=== PATIENT | female | born 1960 ===

== ENCOUNTER 2022-05-23 12:58 | Emergency (ER) | payer OTHER, MEDICAID, SELFPAY ==
--- NOTE | ~2022-05-23 | CT_ITS ---
EXAMINATION: CT ABDOMEN AND PELVIS WITHOUT CONTRAST CLINICAL INFORMATION: Left lower quadrant pain. COMPARISON: None TECHNIQUE: Multidetector volumetric imaging was performed from the superior aspect of the liver through the pubic symphysis. Sagittal and coronal reformatted images were obtained on the technologist's workstation. This CT examination was performed using dose optimization techniques as appropriate, variously including the following: *Automated exposure control *Adjustment of mA and/or kV according to patient size (this includes techniques or standardized protocols for targeted exams where dose is matched to indication/reason for exam; i.e. extremities or head) *Use of iterative reconstruction technique DLP: 787 mGy-cm FINDINGS: LUNG BASES: The visualized lung bases are unremarkable. LIVER, GALLBLADDER, AND BILIARY TREE: The liver is normal in size, shape, and attenuation. No focal hepatic lesion or biliary ductal dilatation is present. There is a punctate 3 mm calcification in the posterior segment right hepatic lobe The gallbladder is unremarkable with no evidence of radiopaque gallstones, gallbladder wall thickening, or obvious pericholecystic inflammatory changes. PANCREAS: Unremarkable. SPLEEN: Unremarkable. ADRENAL GLANDS: Unremarkable. KIDNEYS AND URETERS: The kidneys are normal in size, shape, and attenuation. No hydronephrosis, hydroureter, or calculi seen. No perinephric stranding. BLADDER: Unremarkable. GASTROINTESTINAL TRACT: There is scattered stool and gas seen in the colon without any distention. The small bowel loops are normal caliber. Appendix is normal caliber. No inflammatory process, free air or free fluid seen. ABDOMINAL WALL: No significant hernia is appreciated. LYMPH NODES: Normal. VASCULAR: Unremarkable. PELVIC VISCERA: The uterus is not visualized likely atrophied or removed. There is no free fluid. No abnormal pelvic lymph nodes or adnexal mass. OSSEOUS STRUCTURES: There are degenerative disc changes with vacuum disc phenomena and moderate-sized posterior osteophyte L5-S1 and mild degenerative changes L4-L5 disc level. No aggressive lytic or sclerotic process seen. CT/CT abdomen pelvis wo IV con IMPRESSION: No acute intra-abdominal process seen. Fleischner guidelines were followed.
[2022-05-23 13:07] VITALS: BP 149/71; PULSE 97; RESP 18; TEMP 36.7; O2SAT 98; BMI 36.6
[2022-05-23 13:24] LABS: MANUAL DIFF FLAG NO
[2022-05-23 13:25] LABS: Basophils Percent Auto 0.3 % (0-2); Eosinophils Absolute Auto 0.1 X10*3/uL (0.0-0.4); Eosinophils Percent Auto 1.8 % (0-4); Hematocrit 43.6 % (37.0-47.0); Imm Gran Abs Auto 0.02 X10*3/uL (0.00-0.03); Imm Gran Pct Auto 0.3 % (0.0-0.4); Lymphocytes Absolute Auto 2.7 X10*3/uL (1.2-4.9); Lymphocytes Percent Auto 37.8 % (20-40); Mean Corpuscular HGB Conc 32.1 g/dl (31.0-35.0); Mean Corpuscular Hemoglobin 27.9 pg (27.0-33.0); Mean Corpuscular Volume 86.9 fL (80.0-98.0); Mean Platelet Volume 10.8 fL (9.4-12.3); Monocytes Absolute Auto 0.4 X10*3/uL (0.1-1.2); Monocytes Percent Auto 5.1 % (2-11); Neutrophils Percent Auto 54.7 % (45-73); Platelet Count 202 X10*3/uL (160-400); Red Blood Count 5.02 X10*6/uL (4.20-5.50); Red Cell Distribution Width 13.5 % (11.0-16.0); White Blood Count 7.2 X10*3/uL (4.8-10.8)
[2022-05-23 13:26] LABS: Appearance Urine Clear; Color Urine Yellow; Glucose Urine UA Negative (Negative); Leukocyte Esterase Urine Negative (Negative); Nitrite Urine Negative (Negative); PH 5.5 (5.0-9.0); Specific Gravity - Urine 1.025 (1.005-1.025); Urine Blood Negative (Negative); Urine Ketones Negative (Negative); Urine Protein Negative (Neg-Trace)
[2022-05-23 13:57] LABS: Alanine Aminotransferase 20 U/L (0-31); Albumin Level 4.3 g/dL (3.5-5.0); Alkaline Phosphatase 152 U/L (39-117); Anion Gap 20 (12-20); Aspartate Amino Transferase 16 U/L (5-31); Bilirubin Direct < 0.2 mg/dL (0.0-0.5); Bilirubin Total < 0.2 mg/dL (0.0-1.0); Blood Urea Nitrogen 23 mg/dL (9-16); Calcium 9.2 mg/dL (8.4-10.2); Carbon Dioxide 20 mmol/L (22-29); Chloride 102 mmol/L (96-108); Creatinine Clr Calc Pharmacy 82.4; Estimated Glomerular Filt Rate > 60; Glucose Random 165 mg/dL (60-115); Lipase 76 U/L (8-78); Potassium 4.2 mmol/L (3.3-5.1); Sodium 138 mmol/L (135-145); Total Protein 7.5 g/dL (6.5-8.0)
[2022-05-23 16:00] VITALS: BP 140/54; PULSE 98; RESP 18; TEMP 37.2; O2SAT 99
--- NOTE | 2022-05-23 16:28 | ED_ITS ---
HPI - Abdominal Pain General Chief Complaint: Abdominal Pain Stated Complaint: Pain in L side Time Seen by Provider: 05/23/22 16:28 Source: patient Mode of arrival: ambulatory Limitations: no limitations History of Present Illness HPI narrative: 62 yo female with hx of DM, fibromyalgia and asthma reports 4 days of LLQ pain no other symptoms such as fever, n/v/d. No prior stones or diverticulitis. Has not responded to gabapentin. MD elicited complaint: abdominal pain Pertinent past history: none Onset (ago): day(s) (4) Pain Consistency: constant Location: LLQ Severity: moderate Quality: cramping Radiation: none Migration to: no migration Exacerbating factors: movement Relieving factors: nothing Associated symptoms: denies other symptoms Treatments prior to arrival: other (gabapentin) Related Data Allergies Allergy/AdvReac Type Severity Reaction Status Date / Time hydrocortisone Allergy Anaphylaxis Verified 05/23/22 13:06 [From Solu-Cortef] tramadol AdvReac Palpitation Verified 05/23/22 13:06 s Review of Systems Review of Systems Constitutional : No Weight loss, No Fever, No Chills ENT/Mouth : No sore throat, No Rhinorrhea Eyes: No Swelling, No Redness Cardiovascular : No Chest Pain, No SOB, NoEdema Respiratory : No Cough, No Sputum, No Wheezing Gastrointestinal : no Nausea, no Vomiting, no Diarrhea, positive abdominal Pain, No Hematochezia, No Melena Genitourinary : No Dysuria, No Urinary Frequency, No Hematuria, No Urgency Musculoskeletal : No joint pain, No Myalgias, No Joint Swelling Skin : No Skin Lesions, No rash Neuro : No Weakness, No Numbness, No Dizziness, No Headache Psych : No Anxiety/Panic, No Depression Heme/Lymph: No Bruising, No Lymphadenopathy Endocrine : No Polyuria, No Polydipsia All other systems reviewed and are negative. [facility] Past Medical History Attestation statement: The following information was validated with the patient. Medical History Diabetes Fibromyalgia Social History Social History (Updated 05/23/22 @ 17:05 by Arianna Ny DO) Patient Tobacco Use Status: Never used Tobacco Advance Directives: No Advance Directives Information Provided: No Patient : No Physical Exam ED Vital Signs: Vital Signs - 24 hr 05/23/22 13:07 05/23/22 16:00 05/23/22 18:30 Temperature 98.0 F 98.9 F 97.9 F Pulse Rate 97 98 78 Respiratory Rate 18 18 18 Blood Pressure 149/71 H 140/54 H 141/60 H Pulse Oximetry 98 99 98 Oxygen Delivery Method Room Air Room Air Room Air BMI result Body Mass Index 36.6 Appearance: Alert. Oriented X3. No acute distress. Eyes: Pupils equal, round and reactive to light. ENT: Pharynx normal. Neck: Normal inspection. Neck supple. CVS: Normal heart rate and rhythm. Pulses normal. Respiratory: No respiratory distress. Breath sounds normal. Abdomen: Soft and mild LLQ pain no rebound or guarding Skin: Skin warm and dry. Normal skin color. Normal skin turgor. Extremities: No lower extremity edema. No calf ttp Neuro: Oriented X 3. No motor deficit. No sensory deficit. Course Course Course Narrative: no acute findings. stable for DC call to radiology to review images no ureteral stone seen MDM - Abdominal Pain MDM Narrative Medical decision making narrative: 62 yo female with hx of DM, fibromyalgia and asthma reports 4 days of LLQ pain at this time labs, UA and CT scan for diverticulitis/renal colic ordered. PO tylenol ordered. Lab Data Result diagrams: 05/23/22 13:18 05/23/22 13:18 Labs: Lab Results 05/23/22 05/23/22 05/23/22 Range/Units 13:18 13:18 13:18 WBC 7.2 (4.8-10.8) X10*3/uL RBC 5.02 (4.20-5.50) X10*6/uL Hgb 14.0 (12.0-16.0) g/dl Hct 43.6 (37.0-47.0) % MCV 86.9 (80.0-98.0) fL MCH 27.9 (27.0-33.0) pg MCHC 32.1 (31.0-35.0) g/dl RDW 13.5 (11.0-16.0) % Plt Count 202 (160-400) X10*3/uL MPV 10.8 (9.4-12.3) fL Immature Gran % (Auto) 0.3 (0.0-0.4) % Neut % (Auto) 54.7 (45-73) % Lymph % (Auto) 37.8 (20-40) % [place] % (Auto) 5.1 (2-11) % Eos % (Auto) 1.8 (0-4) % Baso % (Auto) 0.3 (0-2) % Lymph # (Auto) 2.7 (1.2-4.9) X10*3/uL [place] # (Auto) 0.4 (0.1-1.2) X10*3/uL Eos # (Auto) 0.1 (0.0-0.4) X10*3/uL Baso # (Auto) 0.0 (0.0-0.2) X10*3/uL Abs Immat Gran (auto) 0.02 (0.00-0.03) X10*3/uL Absolute Neuts (auto) 4.0 (2.0-8.3) x10*3/uL Absolute Nucleated RBC 0.000 (0.0-0.012) X10*3/uL Nucleated RBC % (auto) 0.0 (0.0-0.2) /100WBC Sodium 138 (135-145) mmol/L Potassium 4.2 (3.3-5.1) mmol/L Chloride 102 (96-108) mmol/L Carbon Dioxide 20 L (22-29) mmol/L Anion Gap 20 (12-20) BUN 23 H (9-16) mg/dL Creatinine 0.76 (0.5-1.4) mg/dL Estim Creat Clear Calc 82.4 Estimated GFR > 60 Random Glucose 165 H (60-115) mg/dL Calcium 9.2 (8.4-10.2) mg/dL Total Bilirubin < 0.2 (0.0-1.0) mg/dL Direct Bilirubin < 0.2 (0.0-0.5) mg/dL AST 16 (5-31) U/L ALT 20 (0-31) U/L Alkaline Phosphatase 152 H (39-117) U/L Total Protein 7.5 (6.5-8.0) g/dL Albumin 4.3 (3.5-5.0) g/dL Lipase 76 (8-78) U/L Urine Color Yellow Urine Appearance Clear Urine pH 5.5 (5.0-9.0) Ur Specific [place] 1.025 (1.005-1.025) Urine Protein Negative (Neg-Trace) mg/dL Urine Glucose (UA) Negative (Negative) mg/dL Urine Ketones Negative (Negative) mg/dL Urine Blood Negative (Negative) Urine Nitrite Negative (Negative) Ur Leukocyte Esterase Negative (Negative) Discharge Plan Discharge Clinical Impression: Abdominal pain Qualifiers: Abdominal location: left lower quadrant Qualified Code(s): R10.32 - Left lower quadrant pain Patient Disposition: Home, Self-Care Instructions: Abdominal Pain (ED) Additional Instructions: return to ED for any worsening symptoms or concerns follow up with your doctor if not better in 3 days take tylenol as needed for pain FINDINGS: LUNG BASES: The visualized lung bases are unremarkable.? LIVER, GALLBLADDER, AND BILIARY TREE: The liver is normal in size, shape, and attenuation. No focal hepatic lesion or biliary ductal dilatation is present. There is a punctate 3 mm calcification in the posterior segment right hepatic lobe The gallbladder is unremarkable with no evidence of radiopaque gallstones, gallbladder wall thickening, or obvious pericholecystic inflammatory changes.? PANCREAS: Unremarkable.? SPLEEN: Unremarkable.? ADRENAL GLANDS: Unremarkable.? KIDNEYS AND URETERS: The kidneys are normal in size, shape, and attenuation. No hydronephrosis, hydroureter, or calculi seen. No perinephric stranding. ? BLADDER: Unremarkable.? GASTROINTESTINAL TRACT: There is scattered stool and gas seen in the colon without any distention. The small bowel loops are normal caliber. Appendix is normal caliber. No inflammatory process, free air or free fluid seen. ABDOMINAL WALL: No significant hernia is appreciated.? LYMPH NODES: Normal. VASCULAR: Unremarkable. PELVIC VISCERA: The uterus is not visualized likely atrophied or removed. There is no free fluid. No abnormal pelvic lymph nodes or adnexal mass. OSSEOUS STRUCTURES: There are degenerative disc changes with vacuum disc phenomena and moderate-sized posterior osteophyte L5-S1 and mild degenerative changes L4-L5 disc level. No aggressive lytic or sclerotic process seen.? CT/CT abdomen pelvis wo IV con IMPRESSION: No acute intra-abdominal process seen.? ?
[2022-05-23] MEDS: Acetaminophen 325 MG TABLET 975 MG PO (18:28)
[2022-05-23 18:30] VITALS: BP 141/60; PULSE 78; RESP 18; TEMP 36.6; O2SAT 98
--- NOTE | 2022-05-23 18:35 | PC.NURSE ---
patient a/o x4 . pearrla . herat rate regular at 85 beats per minute . lungs clear in all lobes . abdomen soft . rebound tenderness noted in left lower quadrent , patient reports 7 out 10 level pain that radiates to flank /back . patient medicated with Tylenol as ordered .positive for bowel sounds in all quadrants . patient aware of plan of care .
== END 2022-05-23 20:24 | disposition home or self-care (01) ==
PROVIDERS: Emergency Provider Emergency Medicine
DX: R10.32 Left lower quadrant pain (principal); E11.9 Type 2 diabetes mellitus without complications
CPT/HCPCS: 36415; 74176; 80053; 81003; 82248; 83690; 85025; 99284

== ENCOUNTER 2022-07-12 00:45 | Emergency (ER) | payer OTHER, MEDICAID, SELFPAY ==
--- NOTE | 2022-07-12 | ECG_ITS ---
Test Reason : SOB Blood Pressure : / mmHG Vent. Rate : 086 BPM Atrial Rate : 086 BPM P-R Int : 130 ms QRS Dur : 074 ms QT Int : 388 ms P-R-T Axes : 048 083 066 degrees QTc Int : 464 ms Normal sinus rhythm Normal ECG No previous ECGs available Referred By: Generic ED Physician Electronically Signed By:Brandyn Dietz
[2022-07-12 01:09] VITALS: BP 148/73; PULSE 102; RESP 20; TEMP 36.2; O2SAT 96; BMI 33.6
[2022-07-12 01:37] LABS: COVID-19 Test Negative (Negative); IDNOW Serial# 16C4AD1C; IDNOW Serial# BCCEAD1C; Influenza A Negative (Negative); Influenza B2 Negative (Negative)
--- NOTE | 2022-07-12 01:49 | ED.ASTHMA ---
HPI - Asthma General Chief Complaint: Asthma Stated Complaint: Asthma/Flu like symptoms Time Seen by Provider: 07/12/22 01:48 Source: patient Mode of arrival: ambulatory Limitations: no limitations History of Present Illness HPI Narrative: Patient history of asthma with frequent attacks moved from [place] does not have the medicine for nebulizer been wheezing for last 1 week with cough and mucoid phlegm no running nose no fever or chills either that does not work Related Data Previous Rx's Medication Instructions Recorded albuterol sulfate 2.5 mg/3 mL 2.5 mg (3 mL) inhalation Q4-6H PRN 07/12/22 (0.083 %) solution for nebulization shortness of breath or wheezing #90 mL albuterol sulfate 90 mcg/actuation 2 puff inhalation Q4-6H PRN 07/12/22 aerosol inhaler (ProAir HFA) shortness of breath or wheezing #8.5 grams prednisone 20 mg tablet 40 mg PO DAILY #10 tabs 07/12/22 Allergies Allergy/AdvReac Type Severity Reaction Status Date / Time hydrocortisone Allergy Anaphylaxis Verified 05/23/22 13:06 [From Solu-Cortef] tramadol AdvReac Palpitation Verified 05/23/22 13:06 s Review of Systems Review of Systems: Yes all other systems are reviewed and are negative [facility] Past Medical History Medical History Diabetes Fibromyalgia Social History Social History Patient Tobacco Use Status: Never used Tobacco Advance Directives: No Advance Directives Information Provided: Yes Physical Exam Vital Signs: Vital Signs: Last Vital Signs Temp 98.0 F 07/12/22 03:40 Pulse 89 07/12/22 03:40 Resp 16 07/12/22 03:40 BP 148/66 H 07/12/22 03:40 Pulse Ox 98 07/12/22 03:40 O2 Del Method 07/12/22 03:40 BMI result Body Mass Index 33.6 Appearance: Alert. Oriented X3. No acute distress. ENT: Pharynx normal. Oral Mucosa moist Neck: Normal inspection. Neck supple. CVS: Normal heart rate and rhythm. Pulses normal. Respiratory: No respiratory distress. Equal air entry bilateral, bilateral prolonged expiration with wheezing no rales Abdomen: Soft and nontender. Bowel sounds are present, Skin: Skin warm and dry. Normal skin color. Normal skin turgor. Extremities: No lower extremity edema. No calf tenderness Neuro: Oriented X 3. No motor deficit. Medications Administered Discontinued Medications Generic Name Dose Route Start Last Admin Trade Name Freq PRN Reason Stop Dose Admin Albuterol Sulfate 2.5 mg/ 0 mg 07/12/22 02:00 07/12/22 02:21 Albuterol/Ipratropium 3 ml INHALE 07/12/22 02:01 1 each ONCE ONE Administration Dexamethasone 10 mg 07/12/22 02:00 07/12/22 02:09 Dexamethasone 2 Mg Tablet PO 07/12/22 02:01 10 mg ONCE ONE Administration Guaifenesin/Codeine Phosphate 10 ml 07/12/22 02:00 07/12/22 02:09 Guaifen/Codeine Sf 200/20/10ml 10 Ml Liquid PO 07/12/22 02:01 10 ml ONCE ONE Administration MDM - Asthma MDM Narrative Medical decision making narrative: Patient's asthma feeling much better after DuoNeb treatment and prednisone discharge patient home Lab Data Attestation: I reviewed the patient's lab results. Labs: Lab Results 07/12/22 07/12/22 Range/Units 01:15 01:15 COVID-19 (TAISHA) Negative (Negative) COVID-19 Clin Com See Note Influenza Type A (SHANTELL) Negative (Negative) Influenza Type B (SHANTELL) Negative (Negative) Influenza A & B Note See Note Discharge Plan Discharge Clinical Impression: Asthma with acute exacerbation Patient Disposition: Home, Self-Care Instructions: Asthma (ED) Additional Instructions: Use inhaler/nebulizer treatment every 4-6 hours as needed prednisone as prescribed Follow with PCP if not better Prescriptions: New prednisone 20 mg tablet 40 mg PO DAILY Qty: 10 0RF albuterol sulfate [ProAir HFA] 90 mcg/actuation HFA aerosol inhaler 2 puff inhalation Q4-6H PRN (Reason: shortness of breath or wheezing) Qty: 8.5 0RF albuterol sulfate 2.5 mg /3 mL (0.083 %) solution for nebulization 2.5 mg inhalation Q4-6H PRN (Reason: shortness of breath or wheezing) Qty: 90 0RF Interventions: ED Discharge Assessment Last Done: 07/12/22 03:41 Discharge Date/Time: 07/12/22 03:42
--- NOTE | 2022-07-12 02:02 | PC.NURSE ---
EKG completed at 0115 in triage documented at 0202
[2022-07-12] MEDS: dexAMETHasone 2 MG TABLET 10 MG PO (02:09)
[2022-07-12] MEDS: guaiFEN/Codeine SF 200/20/10ML 10 ML LIQUID PO (02:09)
[2022-07-12 02:13] VITALS: BP 139/60; PULSE 99; RESP 16; O2SAT 99
[2022-07-12] MEDS: Albuterol Sulfate 2.5 MG, Albuterol/Iprat 2.5/0.5MG 3 ML 3 ML INHALE (02:21)
[2022-07-12 02:24] VITALS: PULSE 84; RESP 16; O2SAT 99
[2022-07-12 03:40] VITALS: BP 148/66; PULSE 89; RESP 16; TEMP 36.7; O2SAT 98
== END 2022-07-12 03:42 | disposition home or self-care (01) ==
PROVIDERS: Emergency Provider Internal Medicine
DX: J45.901 Unspecified asthma with (acute) exacerbation (principal); R05.9 Cough, unspecified; Z20.822 Contact with and (suspected) exposure to COVID-19; Z79.899 Other long term (current) drug therapy
CPT/HCPCS: 87502; 87635; 93005; 94640; 99284; 99285; J8540

== ENCOUNTER 2022-07-17 04:33 | Emergency (ER) | payer OTHER, MEDICAID, SELFPAY ==
--- NOTE | ~2022-07-17 | XR_ITS ---
EXAMINATION: XR CHEST CLINICAL INFORMATION: Cough. COMPARISON: CT abdomen pelvis 05/23/2022. TECHNIQUE: Frontal view of the chest was obtained. FINDINGS: Normal appearance of the cardiomediastinal structures. No effusions or pneumothoraces. Mild central peribronchial wall thickening and fine pulmonary reticular opacities. No focal pulmonary consolidation. XR/XR chest 1V IMPRESSION: Borderline findings suspicious for central peribronchial wall thickening which may be secondary to bronchitis or the sequela of asthma. No focal pulmonary consolidation.
[2022-07-17 04:37] VITALS: BP 139/76; PULSE 92; RESP 18; TEMP 36.1; O2SAT 96; BMI 33.6
[2022-07-17 05:17] LABS: MANUAL DIFF FLAG NO
[2022-07-17 05:19] LABS: Basophils Percent Auto 0.1 % (0-2); Eosinophils Absolute Auto 0.3 X10*3/uL (0.0-0.4); Hematocrit 45.5 % (37.0-47.0); Imm Gran Abs Auto 0.01 X10*3/uL (0.00-0.03); Imm Gran Pct Auto 0.1 % (0.0-0.4); Lymphocytes Absolute Auto 3.7 X10*3/uL (1.2-4.9); Lymphocytes Percent Auto 48.4 % (20-40); Mean Corpuscular Hemoglobin 28.2 pg (27.0-33.0); Mean Corpuscular Volume 85.7 fL (80.0-98.0); Mean Platelet Volume 10.4 fL (9.4-12.3); Monocytes Absolute Auto 0.4 X10*3/uL (0.1-1.2); Monocytes Percent Auto 4.8 % (2-11); Neutrophils Absolute Auto 3.3 x10*3/uL (2.0-8.3); Neutrophils Percent Auto 42.6 % (45-73); Platelet Count 212 X10*3/uL (160-400); Red Blood Count 5.31 X10*6/uL (4.20-5.50); Red Cell Distribution Width 13.6 % (11.0-16.0); White Blood Count 7.7 X10*3/uL (4.8-10.8)
[2022-07-17 05:40] LABS: Anion Gap 16 (12-20); Blood Urea Nitrogen 21 mg/dL (9-16); Carbon Dioxide 26 mmol/L (22-29); Chloride 100 mmol/L (96-108); Creatinine Clr Calc Pharmacy 88.6; Estimated Glomerular Filt Rate > 60; Glucose Random 127 mg/dL (60-115); Potassium 4.2 mmol/L (3.3-5.1); Sodium 138 mmol/L (135-145)
[2022-07-17 05:55] LABS: Influenza A PCR POSITIVE (Negative); Influenza B PCR NEGATIVE (Negative); Resp Syncy Virus RNA Qual PCR NEGATIVE (Negative); SARS COV2 PCR INHOUSE NEGATIVE (Negative)
[2022-07-17 08:05] VITALS: BP 167/81; PULSE 83; RESP 16; TEMP 36.5; O2SAT 98
--- NOTE | 2022-07-17 08:31 | ED_ITS ---
HPI - General Adult General Chief complaint: Upper Respiratory Symptoms Stated complaint: SOB, asthma Time Seen by Provider: 07/17/22 08:21 Source: patient Mode of arrival: ambulatory Limitations: no limitations History of Present Illness HPI narrative: Patient is a 62 year old assigned female at with a history of asthma presenting to the emergency department today with a cough and feeling generally unwell. Patient states that starting 5 days ago, she began to have a cough and wheezing. Patient denies any dizziness, lightheadedness, abdominal pain, nausea, vomiting, fever, chills, blurry vision, double vision, loss of vision, chest pain, difficulty breathing, shortness of breath, back pain, night sweats, pain with urination, increased urinary frequency, increased urinary urgency, blood in her urine or stool, syncope or a near syncopal episode, recent trauma or falls, bowel incontinence, bladder incontinence, bowel retention, bladder retention, or any other complaints at this time. Onset (ago): day(s) (5) Severity: mild Severity scale (1-10): 2 Relieving factors: none Exacerbating factors: none Associated symptoms: cough Treatments prior to arrival: none Related Data Previous Rx's Medication Instructions Recorded albuterol sulfate 2.5 mg/3 mL 2.5 mg (3 mL) inhalation Q4-6H PRN 07/12/22 (0.083 %) solution for nebulization shortness of breath or wheezing #90 mL albuterol sulfate 90 mcg/actuation 2 puff inhalation Q4-6H PRN 07/12/22 aerosol inhaler (ProAir HFA) shortness of breath or wheezing #8.5 grams prednisone 20 mg tablet 40 mg PO DAILY #10 tabs 07/12/22 prednisone 20 mg tablet 20 mg PO DAILY 7 days #7 tabs 07/17/22 Allergies Allergy/AdvReac Type Severity Reaction Status Date / Time hydrocortisone Allergy Anaphylaxis Verified 07/17/22 04:42 [facility] tramadol AdvReac Palpitation Verified 07/17/22 04:42 s Review of Systems Constitutional: Constitutional: Reports no additional constitutional complaints, Denies chills, Denies fever(s) and Denies night sweats Eyes: Eyes: Reports no additional eye complaints, Denies blurry vision, Denies change in vision, Denies diplopia, Denies eye discharge, Denies loss of vision and Denies eye pain ENT: Denies dizziness Cardiovascular: Cardiovascular: Reports no additional cardiovascular complaints, Denies chest pain, Denies lightheadedness, Denies Loss of Consciousness and Denies dyspnea Respiratory: Respiratory: Reports no additional respiratory complaints, Reports cough, Denies dyspnea and Reports wheezing Gastrointestinal: Gastrointestinal: Reports no additional gastrointestinal complaints, Denies abdominal pain, Denies melena, Denies hematochezia, Denies change in bowel habits and Denies change in stool character Genitourinary: Genitourinary: Denies hematuria, Denies urinary frequency, Denies dysuria, Denies urinary incontinence, Denies urinary hesitancy and Denies urinary urgency Musculoskeletal: Musculoskeletal: Reports no additional musculoskeletal complaints, Denies numbness and Denies tingling Neurologic: Denies dizziness, Denies loss of vision, Denies numbness and Denies tingling Psychiatric: Psychiatric: Reports no additional psychiatric complaints Endocrine: Endocrine: Reports no additional endocrine complaints Hematologic/Lymphatic: Hematologic/Lymphatic: Reports no additional hematologic/lymphatic complaints Allergic/Immunologic: Allergic/Immunologic: Reports no additional aller gic/immunologic complaints and Reports wheezing PMFSH Past Medical History Attestation statement: The following information was validated with the patient. Source: old records reviewed and nursing notes reviewed Medical History Diabetes Fibromyalgia Social History Social History Patient Tobacco Use Status: Never used Tobacco Advance Directives: No Advance Directives Information Provided: Yes Physical Exam ED Vital Signs: Vital Signs - 24 hr 07/17/22 04:37 07/17/22 08:05 Temperature 97 F 97.7 F Pulse Rate 92 83 Respiratory Rate 18 16 Blood Pressure 139/76 167/81 H Pulse Oximetry 96 98 Oxygen Delivery Method Room Air Room Air BMI result Body Mass Index 33.6 Const General: cooperative, no acute distress, alert and awake Nutritional Appearance: well nourished Orientation/consciousness: patient oriented x3 Limitations: no limitations HENMT Head: Yes normal to inspection and Yes atraumatic Ears: hearing grossly normal bilaterally and external ears normal General nose exam: Normal external nose present, no nasal discharge noted and no epistaxis Face and sinus: Yes normal facial exam, No abrasion and No laceration Mouth: Normal oral and palatal mucosa present, no drooling and no muffled voice Eyes General: appearance normal, both eyes and all related structures Periorbital: periorbital findings normal Eyelids: Yes eyelids normal Conjunctivae: conjunctivae normal Pupils: Equal, round and reactive pupils present EOM: EOMs intact bilaterally Neck Neck: Yes normal visual inspection, Yes full ROM and Yes no lymphadenopathy Chest Chest palpation & inspection: normal inspection of the chest Resp Effort & Inspection: normal respiratory effort and able to speak in complete sentences Auscultation: wheezes throughout Cardio Rate: regular rate Rhythm: regular rhythm GI Inspection: Yes normal to inspection Neuro General: patient oriented x3 and moves all extremities Cranial nerves: Yes Equal, round and reactive pupils present Cognition (Neuro): normal cognition Motor exam (neuro): 5/5 motor strength present throughout Sensory Exam: Normal double simultaneous stimulation for sensation Coordination: [id number] test normal Extrem General: Yes normal to inspection, Yes full ROM and Yes capillary refill normal Psych Appearance: grossly normal Mental Status: mental status grossly normal Affect: normal affect Attitude: cooperative Thought process: Normal thought process present Thought content: Normal thought content present Insight: Good insight present (Psych) Medical Decision Making Medical Decision Making MDM Narrative: Patient is a 62 year old assigned female at with a history of asthma presenting to the emergency department today with a cough and wheezing. Patient's physical exam showed faint wheezes throughout. Patient's blood work was unremarkable. Patient's chest x-ray showed possible bronchitis. Patient's influenza swab was positive. I explained my physical exam findings as well as all test results to the patient. I answered all questions asked by the patient. I stressed the importance of the patient taking her medication as prescribed. I stressed the importance of the patient following up with her primary care provider. I stressed the importance of the patient returning to the emergency department immediately if her symptoms were to worsen or if she were to develop any dizziness, shortness of breath, difficulty breathing, chest pain, blurry vision, loss of vision, nausea, vomiting, abdominal pain, fever, chills, back pain, or any other complaints. Patient verbalized agreement and understanding with this treatment plan and discharge. Differential Diagnoses: Differential diagnosis Differential Diagnosis: The differential diagnosis associated with the patient?s presentation includes: bronchitis, RSV, influenza, COVID-19 Lab Attestation: I reviewed the patient's lab results. Independent interpretation of EKG, rhythm strip, radiology study: Independent interp EKG,rhythm strip, radiology study (This is not an independent interpretation of the chest x-ray but rather the radiologists interpretation) I performed an independent interpretation of the: Plain X-Ray (chest) The radiologists interpretation is: EXAMINATION: XR CHEST CLINICAL INFORMATION: Cough. COMPARISON: CT abdomen pelvis 05/23/2022. TECHNIQUE: Frontal view of the chest was obtained. FINDINGS: Normal appearance of the cardiomediastinal structures. No effusions or pneumothoraces. Mild central peribronchial wall thickening and fine pulmonary reticular opacities. No focal pulmonary consolidation. XR/XR chest 1V IMPRESSION: Borderline findings suspicious for central peribronchial wall thickening which may be secondary to bronchitis or the sequela of asthma. No focal pulmonary consolidation. ? Dictated By: Ross Medina MD Signed By: Electronically signed by Ross Medina MD 07/17/22 0559 Discharge Plan Discharge Clinical Impression: Influenza, Asthma Patient Disposition: Home, Self-Care Instructions: Asthma (ED), Influenza (ED) Prescriptions: New prednisone 20 mg tablet 20 mg PO DAILY 7 Days Qty: 7 0RF No Action prednisone 20 mg tablet 40 mg PO DAILY Qty: 10 0RF albuterol sulfate [ProAir HFA] 90 mcg/actuation HFA aerosol inhaler 2 puff inhalation Q4-6H PRN (Reason: shortness of breath or wheezing) Qty: 8.5 0RF albuterol sulfate 2.5 mg /3 mL (0.083 %) solution for nebulization 2.5 mg inhalation Q4-6H PRN (Reason: shortness of breath or wheezing) Qty: 90 0RF Referrals: [facility] Family [facility] [Provider Group] (Call to establish and follow up with a primary care provider. If you already have a primary care provider, please follow up with them. ) [facility] Primary [facility], [place] [Provider Group] (Call to establish and follow up with a primary care provider. If you already have a primary care provider, please follow up with them. ) [facility],[place] [Provider Group] (Call to establish and follow up with a primary care provider. If you already have a primary care provider, please follow up with them. ) Stand Alone Forms: Work/School Release Interventions: ED Discharge Assessment Last Done: 07/17/22 09:07 Discharge Date/Time: 07/17/22 09:08 Print Language: Tajik
== END 2022-07-17 09:08 | disposition home or self-care (01) ==
PROVIDERS: Emergency Provider Emergency Medicine Emergency Medical Services
DX: J10.1 Influenza due to other identified influenza virus with other respiratory manifestations (principal); J45.909 Unspecified asthma, uncomplicated; R06.02 Shortness of breath; R05.9 Cough, unspecified; Z79.899 Other long term (current) drug therapy; Z20.822 Contact with and (suspected) exposure to COVID-19
CPT/HCPCS: 0241U; 36415; 71045; 80048; 85025; 99283

== ENCOUNTER 2022-08-23 18:26 | Emergency (ER) | payer OTHER, MEDICAID, SELFPAY ==
--- NOTE | ~2022-08-23 | XR_ITS ---
EXAMINATION: X-RAY RIGHT KNEE X-RAY LEFT KNEE CLINICAL INFORMATION: Pain. COMPARISON: No similar priors. TECHNIQUE: 2 views of each knee were obtained. FINDINGS: Right knee: No acute fracture or subluxation. Mild to moderate tricompartmental degenerative osteoarthritis with marginal osteophytes. No chondrocalcinosis or erosions. Small joint effusion. Left knee: No acute fracture or malalignment. [id number] tricompartmental degenerative changes with prominent marginal osteophytes, similar to the contralateral side. No chondrocalcinosis or erosions. Small joint effusion, similar when compared to the right. XR/XR knee RT 2V IMPRESSION: 1. No acute fracture or malalignment. 2. 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 3. Small bilateral joint effusions.
--- NOTE | ~2022-08-23 | XR_ITS ---
EXAMINATION: X-RAY RIGHT KNEE X-RAY LEFT KNEE CLINICAL INFORMATION: Pain. COMPARISON: No similar priors. TECHNIQUE: 2 views of each knee were obtained. FINDINGS: Right knee: No acute fracture or subluxation. Mild to moderate tricompartmental degenerative osteoarthritis with marginal osteophytes. No chondrocalcinosis or erosions. Small joint effusion. Left knee: No acute fracture or malalignment. [id number] tricompartmental degenerative changes with prominent marginal osteophytes, similar to the contralateral side. No chondrocalcinosis or erosions. Small joint effusion, similar when compared to the right. XR/XR knee LT 2V IMPRESSION: 1. No acute fracture or malalignment. 2. 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 3. Small bilateral joint effusions.
--- NOTE | ~2022-08-23 | XR_ITS ---
EXAMINATION: XR LUMBOSACRAL SPINE CLINICAL INFORMATION: Low back pain. COMPARISON: CT abdomen/pelvis 05/23/2022. TECHNIQUE: Three views of the lumbosacral spine. FINDINGS: No acute compression deformity or traumatic subluxation. Stable subtle grade 1 retrolisthesis of L5 on S1. Redemonstration of moderate disc height loss and facet arthropathy at L5-S1, and Schmorl's nodules along the inferior endplate of L4 and superior endplate of L5. Small multilevel anterior osteophytes are noted. SI joints are symmetric. No significant paraspinal soft tissue abnormality. XR/XR lumbar spine 2-3V IMPRESSION: 1. No acute compression deformity or traumatic subluxation. 2. Moderate spondylosis at L5-S1. If indicated, consider further evaluation with an MR of the lumbar spine.
[2022-08-23 18:34] VITALS: BP 154/70; PULSE 99; RESP 18; TEMP 36.6; O2SAT 100; BMI 34.4
--- NOTE | 2022-08-23 18:46 | ED_ITS ---
HPI - General Adult General Chief complaint: General Medical Stated complaint: Mayank knee pain Time Seen by Provider: 08/23/22 20:16 Related Data Previous Rx's Medication Instructions Recorded albuterol sulfate 2.5 mg/3 mL 2.5 mg (3 mL) inhalation Q4-6H PRN 07/12/22 (0.083 %) solution for nebulization shortness of breath or wheezing #90 mL albuterol sulfate 90 mcg/actuation 2 puff inhalation Q4-6H PRN 07/12/22 aerosol inhaler (ProAir HFA) shortness of breath or wheezing #8.5 grams prednisone 20 mg tablet 40 mg PO DAILY #10 tabs 07/12/22 prednisone 20 mg tablet 20 mg PO DAILY 7 days #7 tabs 07/17/22 cyclobenzaprine 10 mg tablet 5 mg PO BEDTIME PRN muscle spasm 08/23/22 #7 tabs naproxen 500 mg tablet 500 mg PO BID PRN pain #14 tabs 08/23/22 Allergies Allergy/AdvReac Type Severity Reaction Status Date / Time hydrocortisone Allergy Anaphylaxis Verified 07/17/22 04:42 [From Solu-Cortef] tramadol AdvReac Palpitation Verified 07/17/22 04:42 s [facility] Past Medical History Medical History Diabetes Fibromyalgia Social History Social History Patient Tobacco Use Status: Never used Tobacco Smoked in Last 30 Days: No Use of substances other than those prescribed or required for medical reasons: No Advance Directives: No Advance Directives Information Provided: No Patient : No Physical Exam ED Vital Signs: BMI result Body Mass Index 34.4 Course Course Course Narrative: This is rapid medical exam. Deferred HPI, ROS, PE to primary provider. 62-year-old female with a history of asthma presents with bilateral knee pain and lower back pain for the last 2 weeks. Patient does not have a primary care doctor currently and has been unable to see one. No injury or trauma. No numbness/tingling/weakness in LE. +swelling to both knees. No fevers, chills. Ambulatory to triage Medications Administered Discontinued Medications Generic Name Dose Route Start Last Admin Trade Name Freq PRN Reason Stop Dose Admin Ketorolac Tromethamine 30 mg 08/23/22 21:20 08/23/22 22:32 Ketorolac Tromethamine 15 Mg/Ml Vial IM 08/23/22 21:21 30 mg ONCE ONE Administration Medical Decision Making Lab Data 08/23/22 22:18 08/23/22 22:18 Labs: Lab Results 08/23/22 08/23/22 08/23/22 Range/Units 22:18 22:18 22:18 WBC 7.9 (4.8-10.8) X10*3/uL RBC 4.86 (4.20-5.50) X10*6/uL Hgb 13.9 (12.0-16.0) g/dl Hct 42.8 (37.0-47.0) % MCV 88.1 (80.0-98.0) fL MCH 28.6 (27.0-33.0) pg MCHC 32.5 (31.0-35.0) g/dl RDW 13.6 (11.0-16.0) % Plt Count 194 (160-400) X10*3/uL MPV 11.7 (9.4-12.3) fL Immature Gran % (Auto) 0.1 (0.0-0.4) % Neut % (Auto) 50.9 (45-73) % Lymph % (Auto) 40.5 H (20-40) % [place] % (Auto) 6.1 (2-11) % Eos % (Auto) 2.0 (0-4) % Baso % (Auto) 0.4 (0-2) % Lymph # (Auto) 3.2 (1.2-4.9) X10*3/uL [place] # (Auto) 0.5 (0.1-1.2) X10*3/uL Eos # (Auto) 0.2 (0.0-0.4) X10*3/uL Baso # (Auto) 0.0 (0.0-0.2) X10*3/uL Abs Immat Gran (auto) 0.01 (0.00-0.03) X10*3/uL Absolute Neuts (auto) 4.0 (2.0-8.3) x10*3/uL Absolute Nucleated RBC 0.000 (0.0-0.012) X10*3/uL Nucleated RBC % (auto) 0.0 (0.0-0.2) /100WBC Smear Tech's Comments VERIFIED ESR 19 (0-20) MM/HR Sodium 140 (135-145) mmol/L Potassium 3.7 (3.3-5.1) mmol/L Chloride 105 (96-108) mmol/L Carbon Dioxide 25 (22-29) mmol/L Anion Gap 14 (12-20) BUN 22 H (9-16) mg/dL Creatinine 0.88 (0.5-1.4) mg/dL Estim Creat Clear Calc 82.5 Estimated GFR > 60 Random Glucose 113 (60-115) mg/dL Lactic Acid (0.5-2.0) mmol/L Calcium 9.5 (8.4-10.2) mg/dL Total Bilirubin 0.2 (0.0-1.0) mg/dL AST 19 (5-31) U/L ALT 29 (0-31) U/L Alkaline Phosphatase 156 H (39-117) U/L C-Reactive Protein 0.94 H (< or = 0.50) mg/dL Total Protein 7.1 (6.5-8.0) g/dL Albumin 4.2 (3.5-5.0) g/dL 08/23/22 Range/Units 22:18 WBC (4.8-10.8) X10*3/uL RBC (4.20-5.50) X10*6/uL Hgb (12.0-16.0) g/dl Hct (37.0-47.0) % MCV (80.0-98.0) fL MCH (27.0-33.0) pg MCHC (31.0-35.0) g/dl RDW (11.0-16.0) % Plt Count (160-400) X10*3/uL MPV (9.4-12.3) fL Immature Gran % (Auto) (0.0-0.4) % Neut % (Auto) (45-73) % Lymph % (Auto) (20-40) % [place] % (Auto) (2-11) % Eos % (Auto) (0-4) % Baso % (Auto) (0-2) % Lymph # (Auto) (1.2-4.9) X10*3/uL [place] # (Auto) (0.1-1.2) X10*3/uL Eos # (Auto) (0.0-0.4) X10*3/uL Baso # (Auto) (0.0-0.2) X10*3/uL Abs Immat Gran (auto) (0.00-0.03) X10*3/uL Absolute Neuts (auto) (2.0-8.3) x10*3/uL Absolute Nucleated RBC (0.0-0.012) X10*3/uL Nucleated RBC % (auto) (0.0-0.2) /100WBC Smear Tech's Comments ESR (0-20) MM/HR Sodium (135-145) mmol/L Potassium (3.3-5.1) mmol/L Chloride (96-108) mmol/L Carbon Dioxide (22-29) mmol/L Anion Gap (12-20) BUN (9-16) mg/dL Creatinine (0.5-1.4) mg/dL Estim Creat Clear Calc Estimated GFR Random Glucose (60-115) mg/dL Lactic Acid 1.8 (0.5-2.0) mmol/L Calcium (8.4-10.2) mg/dL Total Bilirubin (0.0-1.0) mg/dL AST (5-31) U/L ALT (0-31) U/L Alkaline Phosphatase (39-117) U/L C-Reactive Protein (< or = 0.50) mg/dL Total Protein (6.5-8.0) g/dL Albumin (3.5-5.0) g/dL Discharge Plan Discharge Clinical Impression: Bilateral knee effusions, Lumbar paraspinal muscle spasm Patient Disposition: Home, Self-Care Instructions: Muscle Spasm (ED), Back Pain (ED), Swollen Joint (ED) Additional Instructions: Take your medications as prescribed. If you were prescribed antibiotics today, it is important that you take your medication to their entirety, do not skip any doses, do not finish them early. Follow-up with your primary care provider this week. Return to the emergency department with new or worsening symptoms. Such as fevers, chills, chest pain, shortness of breath, nausea, vomiting, dizziness, headache, vision changes, lethargy In case of emergency call 911 XR/XR lumbar spine 2-3V IMPRESSION: 1.? No acute compression deformity or traumatic subluxation. 2.? Moderate spondylosis at L5-S1. If indicated, consider further evaluation with an MR of the lumbar spine. XR/XR knee RT 2V IMPRESSION: 1.? No acute fracture or malalignment. 2.? 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 3.? Small bilateral joint effusions. Please apply a compression dressing as instructed. If pain persists follow-up with the orthopedic team ? ? Prescriptions: New naproxen 500 mg tablet 500 mg PO BID PRN (Reason: pain) Qty: 14 0RF Rx Instructions: Take with food cyclobenzaprine 10 mg tablet 5 mg PO BEDTIME PRN (Reason: muscle spasm) Qty: 7 0RF No Action prednisone 20 mg tablet 40 mg PO DAILY Qty: 10 0RF albuterol sulfate [ProAir HFA] 90 mcg/actuation HFA aerosol inhaler 2 puff inhalation Q4-6H PRN (Reason: shortness of breath or wheezing) Qty: 8.5 0RF albuterol sulfate 2.5 mg /3 mL (0.083 %) solution for nebulization 2.5 mg inhalation Q4-6H PRN (Reason: shortness of breath or wheezing) Qty: 90 0RF prednisone 20 mg tablet 20 mg PO DAILY 7 Days Qty: 7 0RF Referrals: [facility] [place] [facility] [Provider Group] - 2 weeks Interventions: ED Discharge Assessment Last Done: 08/23/22 23:39 Discharge Date/Time: 08/23/22 23:41
[2022-08-23 22:30] LABS: Mean Corpuscular Volume 88.1 fL (80.0-98.0); PLT CLUMP 1; SCAN SMEAR FLAG 1
[2022-08-23 22:32] LABS: Basophils Percent Auto 0.4 % (0-2); Eosinophils Absolute Auto 0.2 X10*3/uL (0.0-0.4); Hematocrit 42.8 % (37.0-47.0); Hemoglobin 13.9 g/dl (12.0-16.0); Imm Gran Abs Auto 0.01 X10*3/uL (0.00-0.03); Imm Gran Pct Auto 0.1 % (0.0-0.4); Lymphocytes Absolute Auto 3.2 X10*3/uL (1.2-4.9); Lymphocytes Percent Auto 40.5 % (20-40); MANUAL DIFF FLAG SCAN; Mean Corpuscular HGB Conc 32.5 g/dl (31.0-35.0); Mean Corpuscular Hemoglobin 28.6 pg (27.0-33.0); Mean Platelet Volume 11.7 fL (9.4-12.3); Monocytes Absolute Auto 0.5 X10*3/uL (0.1-1.2); Monocytes Percent Auto 6.1 % (2-11); Neutrophils Percent Auto 50.9 % (45-73); Red Blood Count 4.86 X10*6/uL (4.20-5.50); Red Cell Distribution Width 13.6 % (11.0-16.0)
[2022-08-23] MEDS: Ketorolac Tromethamine 15 MG/ML VIAL 30 MG IM (22:32)
--- NOTE | 2022-08-23 22:39 | ED_ITS ---
HPI - General Adult General Chief complaint: General Medical Stated complaint: Mayank knee pain Time Seen by Provider: 08/23/22 20:16 Source: patient Mode of arrival: ambulatory Limitations: no limitations History of Present Illness HPI narrative: This is a 62-year-old female history of diabetes and fibromyalgia presenting to the emergency department with complaints of bilateral knee pain, lower back pain going on for a week and a half, patient tells me she has tried Tylenol [id number] with little to no relief. Patient tells me knee pain worse with movement better at rest. Patient tells me she feels like her knees are swollen. Reports that she is having bilateral lower back pain that spares the midline, which is also worse with movement better at rest. She tells me it feels like a sore sensation. Denies numbness, tingling, saddle paresthesias, fevers, chills, IV drug abuse, weakness, headache, vision changes, dizziness, chest pain, shortness of breath, abdominal pain, urine/bowel incontinence/ retention. Patient denies blunt trauma. Related Data Previous Rx's Medication Instructions Recorded albuterol sulfate 2.5 mg/3 mL 2.5 mg (3 mL) inhalation Q4-6H PRN 07/12/22 (0.083 %) solution for nebulization shortness of breath or wheezing #90 mL albuterol sulfate 90 mcg/actuation 2 puff inhalation Q4-6H PRN 07/12/22 aerosol inhaler (ProAir HFA) shortness of breath or wheezing #8.5 grams prednisone 20 mg tablet 40 mg PO DAILY #10 tabs 07/12/22 prednisone 20 mg tablet 20 mg PO DAILY 7 days #7 tabs 07/17/22 cyclobenzaprine 10 mg tablet 5 mg PO BEDTIME PRN muscle spasm 08/23/22 #7 tabs naproxen 500 mg tablet 500 mg PO BID PRN pain #14 tabs 08/23/22 Allergies Allergy/AdvReac Type Severity Reaction Status Date / Time hydrocortisone Allergy Anaphylaxis Verified 07/17/22 04:42 [From Solu-Cortef] tramadol AdvReac Palpitation Verified 07/17/22 04:42 s Review of Systems Review of Systems: Constitutional : No Weight loss, No Fever, No Chills, ENT/Mouth : No Hearing loss, No Ear Pain, No Nasal Congestion, No Sinus Pain, No Hoarseness, No sore throat, No Rhinorrhea, No Swallowing Difficulty Cardiovascular : No Chest Pain, No SOB Respiratory : No Cough, No Dyspnea Gastrointestinal : No Nausea, No Vomiting, No Diarrhea, No abdominal Pain, No Hematochezia, No Melena Genitourinary : No Dysuria, No Urinary Frequency, No Hematuria, No Urinary Incontinence, Musculoskeletal : positive back pain, positive joint pain Skin : No Skin Lesions, No rash Neuro : No Weakness, No Numbness, No Paresthesias, no loss of bowel or bladder incontinence, no saddle anesthesia Yes all other systems are reviewed and are negative [facility] Past Medical History Attestation statement: The following information was validated with the patient. Source: old records reviewed and nursing notes reviewed Medical History Diabetes Fibromyalgia Social History Social History Patient Tobacco Use Status: Never used Tobacco Advance Directives: No Advance Directives Information Provided: No Physical Exam ED Vital Signs: Vital Signs - 24 hr 08/23/22 18:34 Temperature 97.8 F Pulse Rate 99 Respiratory Rate 18 Blood Pressure 154/70 H Pulse Oximetry 100 Oxygen Delivery Method Room Air BMI result Body Mass Index 34.4 Vital signs stable. Appearance: Alert.? Oriented X3.? No acute distress.? Head: Normocephalic, atraumatic, no step-offs or deformities Eyes: Pupils equal, round and reactive to light.? CVS: Normal heart rate and rhythm.? Pulses normal.? Respiratory: No respiratory distress.? Breath sounds normal.? Abdomen: Soft and nontender.? Skin: Skin warm and dry.? Normal skin color.? Normal skin turgor.? Extremities: No lower extremity edema.? No calf ttp. 5/5 strength to bilateral upper and lower extremities. Full range of motion to bilateral knees with poss ible bilateral small knee effusion, 2+ popliteal pulses, dorsalis pedis, anterior tibialis and posterior tibialis pulses equal bilateral. Patient ambulating with steady gait normal coordination. Back: No midline tenderness, no C-spine tenderness, full range of motion, no CVA tenderness bilaterally + paraspinous tenderness to palpation to bilateral lumbar region. Negative straight leg raise bilaterally. Neuro: Oriented X 3.? No motor deficit.? No sensory deficit. CN 2-12 intact . No saddle paresthesias. Normal gait with normal coordination. Course Reevaluation(s) Reevaluation #1: CBC within normal limits. Chemistry with out electrolyte abnormalities requiring intervention. This x-ray of lumbar spine with no acute compression deformity or traumatic subluxation. Moderate spondylosis at L5, S1 no signs of cord compression no need for emergent MRI at this time. Bilateral knees without fractures or malalignment. There is [id number] by a lateral 2 tricompartmental degenerative osteoarthritis likely why patient has bilateral small joint effusions. Jr wrap will be applied. Patient will be discharged home on short course of prednisone. I suspect inflammatory arthritis. At this time patient will be discharged home patient feeling slightly better. Educated patient on diagnosis and treatment plan, answered all question, patient verbalizes understanding. At this time patient will be discharged home, advised to return with new or worsening symptoms. Educated on worrisome signs and symptoms and when to return. At this time I feel comfortable discharge home. Time: 22:45 Reevaluation #2: Correction patient will not be discharged home on prednisone as she does have an anaphylactic reaction to hydrocortisone. Will discharge with naproxen, cyclobenzaprine for lower back pain and educated on compression dressings. Gave her information for orthopedic follow-up Time: 22:49 Medications Administered Discontinued Medications Generic Name Dose Route Start Last Admin Trade Name Freq PRN Reason Stop Dose Admin Ketorolac Tromethamine 30 mg 08/23/22 21:20 08/23/22 22:32 Ketorolac Tromethamine 15 Mg/Ml Vial IM 08/23/22 21:21 30 mg ONCE ONE Administration Medical Decision Making Medical Decision Making [facility] Narrative: [id number] 62-year-old female presents with bilateral knee pain and swelling and lower back pain times a week and half. Not responding to Tylenol. No red flag symptoms. Physical examination significant for pain with palpation to bilateral lumbar paraspinous muscles. No midline tenderness. Full range of motion to knees. Question small knee effusion bilaterally Concerns for possible arthritis can possible small effusions to bilateral knees. I do not suspect cauda equina, epidural abscess, cord compression, septic joint, threatened limb, arterial or venous occlusion. Plan at this time is imaging and basic labs Differential Diagnosis Differential Diagnoses: The differential diagnosis associated with the presentation includes Concerns for possible arthritis can possible small effusions to bilateral knees. I do not suspect cauda equina, epidural abscess, cord compression, septic joint, threatened limb, arterial or venous occlusion. Admission/Observation Consideration of admission/observation: Escalation of care including ad mission/observation considered Unlikely Lab Data MDM Lab Attestation statement: I reviewed the patient's lab results. 08/23/22 22:18 08/23/22 22:18 Independent Interpretation I performed an independent interpretation of an: Plain X-Ray Radiology Impression Discussion of test interpretation with radiology: I have reviewed the radiologist's reading. External Record Review External record reviewed: Inpatient record, Office record, Prior outpatient labs and Outside ED record Tests considered The following testing was considered but not selected: No need for CAT scan or MRI. Chronic Conditions Patient?s care impacted by: Diabetes Core Measures AMI core measures followed: Yes Measure exclusions: not indicated Critical Care Time Critical Care Time Critical Care Time: No Discharge Plan Discharge Clinical Impression: Bilateral knee effusions, Lumbar paraspinal muscle spasm Patient Disposition: Home, Self-Care Instructions: Muscle Spasm (ED), Back Pain (ED), Swollen Joint (ED) Additional Instructions: Take your medications as prescribed. If you were prescribed antibiotics today, it is important that you take your medication to their entirety, do not skip any doses, do not finish them early. Follow-up with your primary care provider this week. Return to the emergency department with new or worsening symptoms. Such as fevers, chills, chest pain, shortness of breath, nausea, vomiting, dizziness, headache, vision changes, lethargy In case of emergency call 911 XR/XR lumbar spine 2-3V IMPRESSION: 1.? No acute compression deformity or traumatic subluxation. 2.? Moderate spondylosis at L5-S1. If indicated, consider further evaluation with an MR of the lumbar spine. XR/XR knee RT 2V IMPRESSION: 1.? No acute fracture or malalignment. 2.? 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 3.? Small bilateral joint effusions. Please apply a compression dressing as instructed. If pain persists follow-up with the orthopedic team ? ? Prescriptions: New naproxen 500 mg tablet 500 mg PO BID PRN (Reason: pain) Qty: 14 0RF Rx Instructions: Take with food cyclobenzaprine 10 mg tablet 5 mg PO BEDTIME PRN (Reason: muscle spasm) Qty: 7 0RF No Action prednisone 20 mg tablet 40 mg PO DAILY Qty: 10 0RF albuterol sulfate [ProAir HFA] 90 mcg/actuation HFA aerosol inhaler 2 puff inhalation Q4-6H PRN (Reason: shortness of breath or wheezing) Qty: 8.5 0RF albuterol sulfate 2.5 mg /3 mL (0.083 %) solution for nebulization 2.5 mg inhalation Q4-6H PRN (Reason: shortness of breath or wheezing) Qty: 90 0RF prednisone 20 mg tablet 20 mg PO DAILY 7 Days Qty: 7 0RF [place]: [facility] [place] [facility] [place]Provider Group] - 2 weeks
[2022-08-23 22:40] LABS: White Blood Count 7.9 X10*3/uL (4.8-10.8)
[2022-08-23 22:44] LABS: Lactic Acid 1.8 mmol/L (0.5-2.0)
[2022-08-23 22:50] LABS: Platelet Count 194 X10*3/uL (160-400); SLIDE REVIEW VERIFIED
[2022-08-23 23:06] LABS: Alanine Aminotransferase 29 U/L (0-31); Albumin Level 4.2 g/dL (3.5-5.0); Alkaline Phosphatase 156 U/L (39-117); Anion Gap 14 (12-20); Aspartate Amino Transferase 19 U/L (5-31); Bilirubin Total 0.2 mg/dL (0.0-1.0); Blood Urea Nitrogen 22 mg/dL (9-16); C Reactive Protein 0.94 mg/dL (< or = 0.50); Calcium 9.5 mg/dL (8.4-10.2); Carbon Dioxide 25 mmol/L (22-29); Chloride 105 mmol/L (96-108); Creatinine Clr Calc Pharmacy 82.5; Estimated Glomerular Filt Rate > 60; Glucose Random 113 mg/dL (60-115); Potassium 3.7 mmol/L (3.3-5.1); Sodium 140 mmol/L (135-145); Total Protein 7.1 g/dL (6.5-8.0)
[2022-08-23 23:13] LABS: Erythrocyte Sedimentation Rate 19 MM/HR (0-20)
--- NOTE | 2022-08-23 23:38 | PC.NURSE ---
pt ambulatory at discharge. skin pwd. pt reports 5/10 pain at this time. pt provided with discharge packet. pt verbalizes understanding of discharge plan
== END 2022-08-23 23:41 | disposition home or self-care (01) ==
PROVIDERS: Physician Assistant; Emergency Provider Emergency Medicine
DX: M25.561 Pain in right knee (principal); M25.562 Pain in left knee; M25.462 Effusion, left knee; M25.461 Effusion, right knee; M62.830 Muscle spasm of back; M54.50 Low back pain, unspecified; Z79.899 Other long term (current) drug therapy
CPT/HCPCS: 36415; 72100; 73560; 80053; 83605; 85025; 85652; 86140; 87040; 96372; 99284; J1885

== ENCOUNTER 2022-10-29 13:15 | Emergency (ER) | payer OTHER, MEDICAID, SELFPAY ==
[2022-10-29] VITALS (7 sets, daily range): BP systolic 114–170; BP diastolic 59–92; PULSE 74–90; RESP 15–18; TEMP 36.4–36.7; O2SAT 98–100; BMI 33.7
--- NOTE | 2022-10-29 13:28 | ECG_ITS ---
Test Reason : PALPITATIONS Blood Pressure : / mmHG Vent. Rate : 079 BPM Atrial Rate : 079 BPM P-R Int : 136 ms QRS Dur : 082 ms QT Int : 406 ms P-R-T Axes : 052 078 069 degrees QTc Int : 465 ms Normal sinus rhythm Normal ECG When compared with ECG of 12-JUL-2022 01:15, No significant change was found Referred By: Nuha Millan Electronically Signed By:LISA DOZIER MD
--- NOTE | 2022-10-29 13:30 | ED.GENADULT ---
HPI - General Adult General Chief complaint: General Medical Stated complaint: FEELS PALIPTAIONS,DIZZY,NAUSEA THIS AM FROM WALKIN Time Seen by Provider: 10/29/22 13:21 Source: patient Mode of arrival: EMS Limitations: no limitations History of Present Illness HPI narrative: Patient comes to the emergency room from home. Patient states that earlier today she was at home, started feeling lightheaded like she was going to pass out, then she started having palpitations. No chest pain. Patient states that she has history of vertigo but this was different. The room was not spinning. Patient states that this moment she feels better, but she still feels a residual feeling of what happened earlier today. Patient complaining of nausea, no vomiting or diarrhea, no URI or UTI symptoms. Related Data Previous Rx's Medication Instructions Recorded albuterol sulfate 2.5 mg/3 mL 2.5 mg (3 mL) inhalation Q4-6H PRN 07/12/22 (0.083 %) solution for nebulization shortness of breath or wheezing #90 mL albuterol sulfate 90 mcg/actuation 2 puff inhalation Q4-6H PRN 07/12/22 aerosol inhaler (ProAir HFA) shortness of breath or wheezing #8.5 grams prednisone 20 mg tablet 40 mg PO DAILY #10 tabs 07/12/22 prednisone 20 mg tablet 20 mg PO DAILY 7 days #7 tabs 07/17/22 cyclobenzaprine 10 mg tablet 5 mg PO BEDTIME PRN muscle spasm 08/23/22 #7 tabs naproxen 500 mg tablet 500 mg PO BID PRN pain #14 tabs 08/23/22 Allergies Allergy/AdvReac Type Severity Reaction Status Date / Time hydrocortisone Allergy Anaphylaxis Verified 10/29/22 13:32 [From [facility] [place] tramadol AdvReac Palpitation Verified 10/29/22 13:32 s Review of Systems Review of Systems: Constitutional : No Weight loss, No Fever, No Chills, No Night Sweats, No Fatigue, No Malaise ENT/Mouth : No Hearing loss, No Ear Pain, No Nasal Congestion, No Sinus Pain, No Hoarseness, No sore throat, No Rhinorrhea, No Swallowing Difficulty Eyes: No Eye Pain, No Swelling, No Redness, No Foreign Body, No Discharge, No Vision Changes Cardiovascular : No Chest Pain, No SOB, No Dyspnea on Exertion, No Orthopnea, No Edema, No Palpitations Respiratory : No Cough, No Sputum, No Wheezing, No Smoke Exposure, No Dyspnea Gastrointestinal : No Nausea, No Vomiting, No Diarrhea, No Constipation, No abdominal Pain, No Hematochezia, No Melena Genitourinary : no irregular bleeding, No Dysuria, No Urinary Frequency, No Hematuria, No Urinary Incontinence, No Urgency, No Flank Pain, No Urinary Flow Changes, No Hesitancy Musculoskeletal : No joint pain, No Myalgias, No Joint Swelling Skin : No Skin Lesions, No rash Neuro : No Weakness, No Numbness, No Paresthesias, No Loss of Consciousness, no headache, complaining of lightheadedness Psych : No Anxiety/Panic, No Depression, No SI/HI/AH/VH, No Social Issues, Heme/Lymph: No Bruising, No Bleeding,No Lymphadenopathy Endocrine : No Polyuria, No Polydipsia, No Temperature Intolerance PMFSH Past Medical History Medical History (Updated 10/29/22 @ 18:41 by Nuha Millan MD) Asthma Diabetes Fibromyalgia [place] (obstructive sleep apnea) Vertigo Social History Social History Alcohol intake: never Patient Tobacco Use Status: Never used Tobacco Smoked in Last 30 Days: No Use of substances other than those prescribed or required for medical reasons: No Advance Directives: No Advance Directives Information Provided: No Patient : No Physical Exam ED Vital Signs: Vital Signs - 24 hr 10/29/22 13:32 10/29/22 13:39 10/29/22 13:39 Temperature 97.6 F Pulse Rate 78 81 82 Respiratory Rate 18 Blood Pressure 169/77 H 163/68 H 162/74 H Pulse Oximetry 100 Oxygen Delivery Method Room Air 10/29/22 13:39 10/29/22 14:00 10/29/22 16:05 Temperature 97.6 F 97.6 F Pulse Rate 90 74 77 Respiratory Rate 15 18 Blood Pressure 147/72 H 140/60 H 114/92 H Pulse Oximetry 100 Oxygen Delivery Method Room Air 10/29/22 17:03 10/29/22 17:04 10/29/22 17:04 Temperature Pulse Rate 82 83 85 Respiratory Rate Blood Pressure 142/59 H 160/74 H 170/68 H Pulse Oximetry Oxygen Delivery Method 10/29/22 18:24 Temperature 98.1 F Pulse Rate 82 Respiratory Rate 15 Blood Pressure 130/73 Pulse Oximetry 99 Oxygen Delivery Method Room Air BMI result Body Mass Index 33.7 Const Other: Appearance: Alert. Oriented X3. No acute distress. Eyes: Pupils equal, round and reactive to light. ENT: Pharynx normal. Neck: Normal inspection. Neck supple. No lymph nodes noted. No crepitus CVS: Normal heart rate and rhythm. Pulses normal. Normal S1 and S2 Respiratory: No respiratory distress. Breath sounds normal. No Wheezing. No rales Abdomen: Soft and nontender. No rigidity. No distention. Skin: Skin warm, clammy. Normal skin color. Normal skin turgor. Extremities: No lower extremity edema. No Lacerations. No Rash Neuro: Oriented X 3. No motor deficit. No sensory deficit. Moving all extremities. No slurred speech. CN 2 through 12 grossly intact Psych: calm, cooperative, normal affect Course Course Course Narrative: -at this time, patient not having any significant symptoms, patient states that she feels much better, no chest pain or shortness of breath. -EKG and all labs pending, blood pressure in the 160 systolic, heart rate in the mid 90s. Medications Administered Discontinued Medications Generic Name Dose Route Start Last Admin Trade Name Freq PRN Reason Stop Dose Admin Sodium Chloride 1,000 mls @ 999 mls/hr 10/29/22 13:30 10/29/22 17:00 Ns IVCONT 10/29/22 14:30 Infused .Q1H1M ONE Infusion Ondansetron HCl 4 mg 10/29/22 13:30 10/29/22 14:50 Ondansetron Hcl 4 Mg/2 Ml Vial IVPUSH 10/29/22 13:31 4 mg ONCE ONE Administration Medical Decision Making Medical Decision Making [facility] Narrative: -patient had positive orthostatic vitals, receiving IV fluids -EKG my interpretation: Sinus rhythm, heart rate 79, no ST segment depression or elevation, no T-wave inversion, QTC 465 -orthostatic fluids, orthostatics were recheck, patient feeling better, orthostatics negative -patient was likely dehydrated -patient states that she feels completely back to baseline. Differential Diagnosis Differential Diagnoses: The differential diagnosis associated with the presentation includes (UTI, orthostatic hypotension, dizziness) Lab Data [facility] Lab Attestation statement: I reviewed the patient's lab results. 10/29/22 14:45 10/29/22 16:22 Labs: Lab Results 10/29/22 10/29/22 10/29/22 Range/Units 14:09 14:45 14:45 WBC 7.9 (4.8-10.8) X10*3/uL RBC 5.45 (4.20-5.50) X10*6/uL Hgb 15.7 (12.0-16.0) g/dl Hct 48.3 H (37.0-47.0) % MCV 88.6 (80.0-98.0) fL MCH 28.8 (27.0-33.0) pg MCHC 32.5 (31.0-35.0) g/dl RDW 13.2 (11.0-16.0) % Plt Count 229 (160-400) X10*3/uL MPV 11.5 (9.4-12.3) fL Immature Gran % (Auto) 0.4 (0.0-0.4) % Neut % (Auto) 56.0 (45-73) % Lymph % (Auto) 35.5 (20-40) % [place] % (Auto) 5.3 (2-11) % Eos % (Auto) 2.4 (0-4) % Baso % (Auto) 0.4 (0-2) % Lymph # (Auto) 2.8 (1.2-4.9) X10*3/uL [place] # (Auto) 0.4 (0.1-1.2) X10*3/uL Eos # (Auto) 0.2 (0.0-0.4) X10*3/uL Baso # (Auto) 0.0 (0.0-0.2) X10*3/uL Abs Immat Gran (auto) 0.03 (0.00-0.03) X10*3/uL Absolute Neuts (auto) 4.5 (2.0-8.3) x10*3/uL Absolute Nucleated RBC 0.000 (0.0-0.012) X10*3/uL Nucleated RBC % (auto) 0.0 (0.0-0.2) /100WBC PT 10.3 (10.0-13.1) SEC INR 0.9 (0.9-1.1) Sodium (135-145) mmol/L Potassium (3.3-5.1) mmol/L Chloride (96-108) mmol/L Carbon Dioxide (22-29) mmol/L Anion Gap (12-20) BUN (9-16) mg/dL Creatinine (0.5-1.4) mg/dL Estim Creat Clear Calc Estimated GFR Random Glucose (60-115) mg/dL Calcium (8.4-10.2) mg/dL Total Bilirubin (0.0-1.0) mg/dL Direct Bilirubin (0.0-0.5) mg/dL AST (5-31) U/L ALT (0-31) U/L Alkaline Phosphatase (39-117) U/L Troponin I High Sens (<3.5-17.0) ng/L Total Protein (6.5-8.0) g/dL Albumin (3.5-5.0) g/dL TSH Urine Color Yellow Urine Appearance Clear Urine pH 5.5 (5.0-9.0) Ur Specific [place] 1.010 (1.005-1.025) Urine Protein Negative (Neg-Trace) mg/dL Urine Glucose (UA) Negative (Negative) mg/dL Urine Ketones Negative (Negative) mg/dL Urine Blood Negative (Negative) Urine Nitrite Negative (Negative) Ur Leukocyte Esterase Negative (Negative) 10/29/22 10/29/22 10/29/22 Range/Units 14:45 14:45 16:22 WBC (4.8-10.8) X10*3/uL RBC (4.20-5.50) X10*6/uL Hgb (12.0-16.0) g/dl Hct (37.0-47.0) % MCV (80.0-98.0) fL MCH (27.0-33.0) pg MCHC (31.0-35.0) g/dl RDW (11.0-16.0) % Plt Count (160-400) X10*3/uL MPV (9.4-12.3) fL Immature Gran % (Auto) (0.0-0.4) % Neut % (Auto) (45-73) % Lymph % (Auto) (20-40) % [place] % (Auto) (2-11) % Eos % (Auto) (0-4) % Baso % (Auto) (0-2) % Lymph # (Auto) (1.2-4.9) X10*3/uL [place] # (Auto) (0.1-1.2) X10*3/uL Eos # (Auto) (0.0-0.4) X10*3/uL Baso # (Auto) (0.0-0.2) X10*3/uL Abs Immat Gran (auto) (0.00-0.03) X10*3/uL Absolute Neuts (auto) (2.0-8.3) x10*3/uL Absolute Nucleated RBC (0.0-0.012) X10*3/uL Nucleated RBC % (auto) (0.0-0.2) /100WBC PT (10.0-13.1) SEC INR (0.9-1.1) Sodium 140 (135-145) mmol/L Potassium 4.3 (3.3-5.1) mmol/L Chloride 104 (96-108) mmol/L Carbon Dioxide 28 (22-29) mmol/L Anion Gap 12 (12-20) BUN 13 (9-16) mg/dL Creatinine 0.72 (0.5-1.4) mg/dL Estim Creat Clear Calc 99.6 Estimated GFR > 60 Random Glucose 104 (60-115) mg/dL Calcium 9.0 (8.4-10.2) mg/dL Total Bilirubin 0.2 (0.0-1.0) mg/dL Direct Bilirubin < 0.2 (0.0-0.5) mg/dL AST 22 (5-31) U/L ALT 27 (0-31) U/L Alkaline Phosphatase 158 H (39-117) U/L Troponin I High Sens 3.9 (<3.5-17.0) ng/L Total Protein 6.5 (6.5-8.0) g/dL Albumin 3.8 (3.5-5.0) g/dL TSH Cancelled 1.35 Urine Color Urine Appearance Urine pH (5.0-9.0) Ur Specific [place] (1.005-1.025) Urine Protein (Neg-Trace) mg/dL Urine Glucose (UA) (Negative) mg/dL Urine Ketones (Negative) mg/dL Urine Blood (Negative) Urine Nitrite (Negative) Ur Leukocyte Esterase (Negative) Independent Interpretation I performed an independent interpretation of an: EKG (EKG my interpretation: Normal sinus rhythm, heart rate 79, no ST segment depression or elevation, no T-wave inversion, QTC 465) Discharge Plan Discharge Clinical Impression: Orthostatic hypotension Patient Disposition: Home, Self-Care Instructions: Hypotension (ED) Additional Instructions: Please stay well hydrated. Please follow-up with your primary care physician tomorrow. If you have any worsening or new symptoms, please return to the emergency room or call 911 Prescriptions: No Action prednisone 20 mg tablet 40 mg PO DAILY Qty: 10 0RF albuterol sulfate [ProAir HFA] 90 mcg/actuation HFA aerosol inhaler 2 puff inhalation Q4-6H PRN (Reason: shortness of breath or wheezing) Qty: 8.5 0RF albuterol sulfate 2.5 mg /3 mL (0.083 %) solution for nebulization 2.5 mg inhalation Q4-6H PRN (Reason: shortness of breath or wheezing) Qty: 90 0RF prednisone 20 mg tablet 20 mg PO DAILY 7 Days Qty: 7 0RF naproxen 500 mg tablet 500 mg PO BID PRN (Reason: pain) Qty: 14 0RF Rx Instructions: Take with food cyclobenzaprine 10 mg tablet 5 mg PO BEDTIME PRN (Reason: muscle spasm) Qty: 7 0RF
--- NOTE | 2022-10-29 13:55 | PC.NURSE ---
patient a&ox3, orthostats performed, ekg performed, pt placed on sewer head, pt ambulated to bathroom with assist- c/o dizziness while ambulating- tech to obtain urine upon her return.
[2022-10-29 14:15] LABS: Appearance Urine Clear; Color Urine Yellow; Glucose Urine UA Negative (Negative); Leukocyte Esterase Urine Negative (Negative); Nitrite Urine Negative (Negative); PH 5.5 (5.0-9.0); Urine Blood Negative (Negative); Urine Ketones Negative (Negative); Urine Protein Negative (Neg-Trace)
[2022-10-29 14:50] LABS: MANUAL DIFF FLAG NO
[2022-10-29] MEDS: 0.9 % Sodium Chloride 1,000 ML 999 ML IVCONT (14:50)
[2022-10-29] MEDS: ondansetron HCL 4 MG/2 ML VIAL IVPUSH (14:50)
--- NOTE | 2022-10-29 14:52 | PC.NURSE ---
labs drawn, IV inserted, fluids running. Pt medicated per order. Call giron within reach, will cot to elaine.
[2022-10-29 14:54] LABS: Basophils Percent Auto 0.4 % (0-2); Eosinophils Absolute Auto 0.2 X10*3/uL (0.0-0.4); Eosinophils Percent Auto 2.4 % (0-4); Hematocrit 48.3 % (37.0-47.0); Hemoglobin 15.7 g/dl (12.0-16.0); Imm Gran Abs Auto 0.03 X10*3/uL (0.00-0.03); Imm Gran Pct Auto 0.4 % (0.0-0.4); Lymphocytes Absolute Auto 2.8 X10*3/uL (1.2-4.9); Lymphocytes Percent Auto 35.5 % (20-40); Mean Corpuscular HGB Conc 32.5 g/dl (31.0-35.0); Mean Corpuscular Hemoglobin 28.8 pg (27.0-33.0); Mean Corpuscular Volume 88.6 fL (80.0-98.0); Mean Platelet Volume 11.5 fL (9.4-12.3); Monocytes Absolute Auto 0.4 X10*3/uL (0.1-1.2); Monocytes Percent Auto 5.3 % (2-11); Neutrophils Absolute Auto 4.5 x10*3/uL (2.0-8.3); Platelet Count 229 X10*3/uL (160-400); Red Blood Count 5.45 X10*6/uL (4.20-5.50); Red Cell Distribution Width 13.2 % (11.0-16.0); White Blood Count 7.9 X10*3/uL (4.8-10.8)
[2022-10-29 14:59] LABS: INTERNATIONAL NORM RATIO 0.9 (0.9-1.1); Prothrombin Time 10.3 SEC (10.0-13.1)
[2022-10-29 15:17] LABS: Troponin-I High Sensitivity 3.9 ng/L (<3.5-17.0)
--- NOTE | 2022-10-29 16:06 | PC.NURSE ---
pt sleeping, woke to verbal stimulus, IVF noted to be running slowly, site monitor intact-nsr 70s, vss, will perform repeat orthostats after fluids, call giron within reach, will continue to monitor
--- NOTE | 2022-10-29 16:51 | PC.NURSE ---
pt requesting PO. provider ok's pt to have PO- pt was given gingerale and crackers.
--- NOTE | 2022-10-29 17:07 | PC.NURSE ---
pt AOx3, fluids finished running. Ortho stats negative. Pt continues to report dizziness. will cont to monitor
[2022-10-29 17:08] LABS: Alanine Aminotransferase 27 U/L (0-31); Albumin Level 3.8 g/dL (3.5-5.0); Alkaline Phosphatase 158 U/L (39-117); Anion Gap 12 (12-20); Aspartate Amino Transferase 22 U/L (5-31); Bilirubin Direct < 0.2 mg/dL (0.0-0.5); Bilirubin Total 0.2 mg/dL (0.0-1.0); Blood Urea Nitrogen 13 mg/dL (9-16); Carbon Dioxide 28 mmol/L (22-29); Chloride 104 mmol/L (96-108); Creatinine Clr Calc Pharmacy 99.6; Estimated Glomerular Filt Rate > 60; Glucose Random 104 mg/dL (60-115); Potassium 4.3 mmol/L (3.3-5.1); Sodium 140 mmol/L (135-145); Total Protein 6.5 g/dL (6.5-8.0)
[2022-10-29 17:27] LABS: TSH reflex Free T4 1.35 uIU/mL (0.32-4.0)
== END 2022-10-29 19:12 | disposition home or self-care (01) ==
PROVIDERS: Emergency Provider Emergency Medicine
DX: I95.1 Orthostatic hypotension (principal); R00.2 Palpitations; R42 Dizziness and giddiness; R11.0 Nausea; Z79.899 Other long term (current) drug therapy
CPT/HCPCS: 36415; 80048; 80076; 81003; 84443; 84484; 85025; 85610; 93005; 96361; 96374; 99284; 99285; J2405

== ENCOUNTER 2022-11-01 12:52 | Outpatient (REF) | payer OTHER, MEDICAID, SELFPAY ==
--- NOTE | ~2022-11-01 | XR_ITS ---
EXAMINATION: XR cervical spine 5V CLINICAL INFORMATION: Pain COMPARISON: None TECHNIQUE: 5 views of the cervical spine were obtained. FINDINGS: The cervical spine is visualized to the level of C6 on the lateral view. 1 mm of retrolisthesis C2-C3. Vertebral body heights are maintained. Lateral masses of C1 are well aligned on C2. Visualized portion of the dens is intact. Moderate degenerative disc disease at C4/C5, manifested by disc space narrowing and osteophytosis.. Uncovertebral hypertrophy and facet arthropathy results in moderate neural foraminal narrowing on the left at C4/C5. Right osseous neuroforamina appear patent. No prevertebral soft tissue swelling. XR/XR cervical spine 5V IMPRESSION: 1. Moderate spondylosis of the cervical spine, as above detailed. 2. Moderate neural foraminal narrowing, as above detailed.
== END 2022-11-01 12:53 | disposition home or self-care (01) ==
LOC: HO.XRAY 12:52
PROVIDERS: PCP Registered Nurse; Visit Provider Registered Nurse
DX: M54.2 Cervicalgia (principal)
CPT/HCPCS: 72050

== ENCOUNTER 2022-12-02 09:17 | Outpatient (REF) | payer OTHER, MEDICAID, SELFPAY ==
--- NOTE | ~2022-12-02 | XR_ITS ---
EXAMINATION: XR knee standing BI, XR knee LT 1V, XR knee RT 1V CLINICAL INFORMATION: Reason for Exam M25.569 - Pain in unspecified knee COMPARISON: 08/23/2022 TECHNIQUE: Standing and sunrise views of the bilateral knees XR/XR knee RT 1V FINDINGS/IMPRESSION: * No acute fracture or dislocation. * Mild degenerative changes of the bilateral knee joints with joint space narrowing and osteophytosis.
--- NOTE | ~2022-12-02 | XR_ITS ---
EXAMINATION: XR knee standing BI, XR knee LT 1V, XR knee RT 1V CLINICAL INFORMATION: Reason for Exam M25.569 - Pain in unspecified knee COMPARISON: 08/23/2022 TECHNIQUE: Standing and sunrise views of the bilateral knees XR/XR knee LT 1V FINDINGS/IMPRESSION: * No acute fracture or dislocation. * Mild degenerative changes of the bilateral knee joints with joint space narrowing and osteophytosis.
--- NOTE | ~2022-12-02 | XR_ITS ---
EXAMINATION: XR knee standing BI, XR knee LT 1V, XR knee RT 1V CLINICAL INFORMATION: Reason for Exam M25.569 - Pain in unspecified knee COMPARISON: 08/23/2022 TECHNIQUE: Standing and sunrise views of the bilateral knees XR/XR knee standing BI FINDINGS/IMPRESSION: * No acute fracture or dislocation. * Mild degenerative changes of the bilateral knee joints with joint space narrowing and osteophytosis.
== END 2022-12-02 09:18 | disposition home or self-care (01) ==
LOC: HO.HOSX 09:17
PROVIDERS: Visit Provider Physician Assistant
DX: M17.0 Bilateral primary osteoarthritis of knee (principal); E11.9 Type 2 diabetes mellitus without complications
CPT/HCPCS: 20610; 73560; 73565; J1040

== ENCOUNTER → 2022-12-18 13:52 | Outpatient (BNVA) | payer MEDICARE, MEDICAID, SELFPAY | PROVIDERS: PCP Physician Assistant; Visit Provider Internal Medicine | DX: G47.33 Obstructive sleep apnea (adult) (pediatric) (principal); J45.909 Unspecified asthma, uncomplicated; E66.9 Obesity, unspecified | CPT/HCPCS: 99202 ==

== ENCOUNTER 2022-12-19 18:05 | Emergency (ER) | payer MEDICARE, MEDICAID, SELFPAY ==
--- NOTE | ~2022-12-19 | XR_ITS ---
EXAMINATION: XR CHEST CLINICAL INFORMATION: Shortness of breath COMPARISON: 07/17/2022 TECHNIQUE: 2 views of the chest were obtained. FINDINGS: Cardiac leads overlie the chest. The lungs are well expanded. There is no focal consolidation, edema, or effusion. No pneumothorax. The cardiomediastinal silhouette is within normal limits. No acute osseous abnormality. Degenerative change throughout the spine. XR/XR chest 2V IMPRESSION: Clear lungs.
--- NOTE | 2022-12-19 18:40 | ECG_ITS ---
Test Reason : CHEST PAIN Blood Pressure : / mmHG Vent. Rate : 083 BPM Atrial Rate : 083 BPM P-R Int : 128 ms QRS Dur : 080 ms QT Int : 388 ms P-R-T Axes : 061 079 042 degrees QTc Int : 455 ms Normal sinus rhythm Possible Left atrial enlargement Nonspecific ST abnormality Abnormal ECG When compared with ECG of 29-OCT-2022 13:32, No significant change was found Referred By: Jimmy Rogers Electronically Signed By:PARESH VILLEGAS
--- NOTE | 2022-12-19 18:55 | ED_ITS ---
HPI - General Adult General Chief complaint: General Medical Stated complaint: dizzy, chest pain, nausea Time Seen by Provider: 12/19/22 22:27 Source: patient, RN notes reviewed and old records reviewed Mode of arrival: ambulatory Limitations: no limitations History of Present Illness HPI narrative: 62-year-old female with past medical history significant for asthma, obesity, diabetes, hypertension presents for evaluation of palpitations and shortness of breath. Patient reports that while she was at work she was walking and started to feel like her heart was beating very fast She states that this led her to feel short of breath She reports that she then had some dizziness and had to sit down She reports that her symptoms have been constant the entire time but have reduced in severity She never had any chest pain with this Patient denies any fevers, chills, cough, leg swelling Reports a similar episode happened a couple of weeks ago and was felt it may be related to vertigo Patient states that she has never had any abnormal heart rhythms or heart attack that she knows of Related Data Home Medications Medication Instructions Recorded Confirmed amlodipine 5 mg tablet 5 mg PO DAILY 12/18/22 ammonium lactate 12 % topical cream 1 appl topical DAILY 12/18/22 atorvastatin 40 mg tablet 40 mg PO DAILY 12/18/22 montelukast 10 mg tablet 10 mg PO BEDTIME 12/18/22 12/18/22 (Singulair) Previous Rx's Medication Instructions Recorded albuterol sulfate 90 mcg/actuation 2 puff inhalation Q4-6H PRN 07/12/22 aerosol inhaler (ProAir HFA) shortness of breath or wheezing #8.5 grams naproxen 500 mg tablet 500 mg PO BID PRN pain #14 tabs 08/23/22 albuterol sulfate 2.5 mg/3 mL 2.5 mg (3 mL) inhalation Q4-6H PRN 12/18/22 (0.083 %) solution for nebulization shortness of breath or wheezing 30 days #90 mL Allergies Allergy/AdvReac Type Severity Reaction Status Date / Time hydrocortisone Allergy Anaphylaxis Verified 12/18/22 15:07 [From Solu-Cortef] tramadol AdvReac Palpitation Verified 12/18/22 15:07 s Review of Systems Constitutional: Constitutional: Reports as per HPI, Denies chills, Denies fatigue, Denies fever(s) and Denies headache(s) ENT: Denies headache(s) Cardiovascular: Cardiovascular: Denies chest pain, Reports irregular heart rhythm, Reports palpitations and Reports dyspnea Respiratory: Respiratory: Denies cough and Reports dyspnea Gastrointestinal: Gastrointestinal: Denies abdominal pain, Denies constipation and Denies vomiting Genitourinary: Genitourinary: Denies dysuria Neurologic: Denies headache(s) and Denies focal weakness Endocrine: Endocrine: Denies fatigue and Reports palpitations [facility] Past Medical History Medical History (Updated 12/19/22 @ 23:27 by Omar Cole) Asthma Asthma Diabetes Fibromyalgia Obesity (BMI 30-39.9) [place] (obstructive sleep apnea) [place] (obstructive sleep apnea) Vertigo Social History Social History Alcohol intake: never Patient Tobacco Use Status: Never used Tobacco Smoked in Last 30 Days: No Use of substances other than those prescribed or required for medical reasons: No Advance Directives: No Advance Directives Information Provided: No Patient : No Current occupational status: retired and disabled Current occupation: rt hand Physical Exam ED Vital Signs: Vital Signs - 24 hr 12/19/22 18:56 12/19/22 21:35 12/19/22 21:54 Temperature 97 F 98.0 F Pulse Rate 85 81 80 Respiratory Rate 18 18 Blood Pressure 158/70 H 141/59 H 144/61 H Pulse Oximetry 100 98 Oxygen Delivery Method Room Air Room Air 12/19/22 21:58 12/19/22 22:01 Temperature Pulse Rate 84 85 Respiratory Rate Blood Pressure 139/62 140/73 H Pulse Oximetry Oxygen Delivery Method BMI result Body Mass Index 25.8 Const General: healthy appearing, comfortable, no acute distress, alert and awake Nutritional Appearance: well nourished Orientation/consciousness: patient oriented x3 HENMT Head: Yes normocephalic and Yes atraumatic Throat: Yes posterior oropharynx normal Eyes Eyelids: Yes eyelids normal Conjunctivae: conjunctivae normal Sclerae: sclerae normal Corneas: corneas normal Pupils: Equal, round and reactive pupils present EOM: EOMs intact bilaterally Neck Neck: Yes full ROM Resp Effort & Inspection: normal respiratory effort, able to speak in complete sentences, no audible wheezes and not labored Auscultation: clear to auscultation bilaterally Cardio Rate: regular rate Rhythm: regular rhythm GI Inspection: No distended Palpation (GI): Soft to palpation, not firm, nontender, no guarding and not ri gid Auscultation: normoactive bowel sounds Skin General skin exam: no rashes or lesions noted and elasticity normal Neuro General: patient oriented x3 Cranial nerves: Yes Equal, round and reactive pupils present and Yes Bilaterally intact EOM present Cognition (Neuro): normal cognition Extrem Other: Moving all extremities well without any obvious deformities Course Course Course Narrative: This is an RME: Additional HPI, ROS, PE not included below will be deferred to primary provider. 62 year old female with PMH of diabetes, asthma and obesity presents with sudden onset of palpitations while she was at work today. She reports then she got an occipital headache and became dizzy. Patient is now reporting continued palpitations and SOB. Plan: Labs, orthostatic vitals Reevaluation(s) Reevaluation #1: Patient's D-dimer negative, chest x-ray was also clear. She is stable for discharge to follow-up with cardiology for her palpitations Time: 23:24 Medical Decision Making Medical Decision Making [facility] Narrative: Patient's EKG is sinus rhythm without arrhythmia, she has been on the monitor without any evidence of arrhythmias or ectopy. Her heart rate has also been less than 100. The patient's troponin was negative but she had no chest pain regardless. A D-dimer is still pending that was ordered in triage. [place] [address] had a chest x-ray. Patient has been mildly hypertensive which she has a history of. If the patient's D-dimer is negative I feel she can be safely discharged to follow up with Cardiology for possible Holter monitor as she has had this episode in the past Differential Diagnosis Anxiety Vertigo Pneumonia Arrhythmia Palpitations PE less likely Lab Data [facility] Lab Attestation statement: I reviewed the patient's lab results. 12/19/22 18:54 12/19/22 20:21 Labs: Lab Results 12/19/22 12/19/22 12/19/22 Range/Units 18:54 18:54 18:54 WBC 12.4 H (4.8-10.8) X10*3/uL RBC 5.20 (4.20-5.50) X10*6/uL Hgb 14.7 (12.0-16.0) g/dl Hct 45.2 (37.0-47.0) % MCV 86.9 (80.0-98.0) fL MCH 28.3 (27.0-33.0) pg MCHC 32.5 (31.0-35.0) g/dl RDW 13.6 (11.0-16.0) % Plt Count TNP MPV 12.0 (9.4-12.3) fL Immature Gran % (Auto) 0.6 H (0.0-0.4) % Neut % (Auto) 62.4 (45-73) % Lymph % (Auto) 30.3 (20-40) % Powell % (Auto) 5.5 (2-11) % Eos % (Auto) 0.9 (0-4) % Baso % (Auto) 0.3 (0-2) % Lymph # (Auto) 3.8 (1.2-4.9) X10*3/uL Powell # (Auto) 0.7 (0.1-1.2) X10*3/uL Eos # (Auto) 0.1 (0.0-0.4) X10*3/uL Baso # (Auto) 0.0 (0.0-0.2) X10*3/uL Abs Immat Gran (auto) 0.08 H (0.00-0.03) X10*3/uL Absolute Neuts (auto) 7.7 (2.0-8.3) x10*3/uL Absolute Nucleated RBC 0.000 (0.0-0.012) X10*3/uL Nucleated RBC % (auto) 0.0 (0.0-0.2) /100WBC Smear Tech's Comments VERIFIED D-Dimer High Sensitivty NG/ML Sodium (135-145) mmol/L Potassium (3.3-5.1) mmol/L Chloride (96-108) mmol/L Carbon Dioxide (22-29) mmol/L Anion Gap (12-20) BUN (9-16) mg/dL Creatinine (0.5-1.4) mg/dL Estim Creat Clear Calc Estimated GFR Random Glucose (60-115) mg/dL Calcium (8.4-10.2) mg/dL Magnesium (1.6-2.6) mg/dL Total Bilirubin (0.0-1.0) mg/dL AST (5-31) U/L ALT (0-31) U/L Alkaline Phosphatase (39-117) U/L Troponin I High Sens < 2.7 (<3.5-17.0) ng/L Total Protein (6.5-8.0) g/dL Albumin (3.5-5.0) g/dL Beta HCG, Quant mIU/mL Urine Color Urine Appearance Urine pH (5.0-9.0) Ur Specific [place] (1.005-1.025) Urine Protein (Neg-Trace) mg/dL Urine Glucose (UA) (Negative) mg/dL Urine Ketones (Negative) mg/dL Urine Blood (Negative) Urine Nitrite (Negative) Ur Leukocyte Esterase (Negative) COVID-19 (TAISHA) Negative (Negative) COVID-19 Clin Com See Note 12/19/22 12/19/22 12/19/22 Range/Units 20:21 21:44 22:15 WBC (4.8-10.8) X10*3/uL RBC (4.20-5.50) X10*6/uL Hgb (12.0-16.0) g/dl Hct (37.0-47.0) % MCV (80.0-98.0) fL MCH (27.0-33.0) pg MCHC (31.0-35.0) g/dl RDW (11.0-16.0) % Plt Count MPV (9.4-12.3) fL Immature Gran % (Auto) (0.0-0.4) % Neut % (Auto) (45-73) % Lymph % (Auto) (20-40) % Powell % (Auto) (2-11) % Eos % (Auto) (0-4) % Baso % (Auto) (0-2) % Lymph # (Auto) (1.2-4.9) X10*3/uL Powell # (Auto) (0.1-1.2) X10*3/uL Eos # (Auto) (0.0-0.4) X10*3/uL Baso # (Auto) (0.0-0.2) X10*3/uL Abs Immat Gran (auto) (0.00-0.03) X10*3/uL Absolute Neuts (auto) (2.0-8.3) x10*3/uL Absolute Nucleated RBC (0.0-0.012) X10*3/uL Nucleated RBC % (auto) (0.0-0.2) /100WBC Smear Tech's Comments D-Dimer High Sensitivty 219 NG/ML Sodium 139 (135-145) mmol/L Potassium 4.2 (3.3-5.1) mmol/L Chloride 103 (96-108) mmol/L Carbon Dioxide 25 (22-29) mmol/L Anion Gap 15 (12-20) BUN 26 H (9-16) mg/dL Creatinine 0.78 (0.5-1.4) mg/dL Estim Creat Clear Calc 82.9 Estimated GFR > 60 Random Glucose 95 (60-115) mg/dL Calcium 9.7 D (8.4-10.2) mg/dL Magnesium 2.0 (1.6-2.6) mg/dL Total Bilirubin 0.2 (0.0-1.0) mg/dL AST 15 (5-31) U/L ALT 20 (0-31) U/L Alkaline Phosphatase 167 H (39-117) U/L Troponin I High Sens (<3.5-17.0) ng/L Total Protein 7.5 (6.5-8.0) g/dL Albumin 4.1 (3.5-5.0) g/dL Beta HCG, Quant < 2 mIU/mL Urine Color Yellow Urine Appearance Clear Urine pH 5.5 (5.0-9.0) Ur Specific [place] 1.020 (1.005-1.025) Urine Protein Negative (Neg-Trace) mg/dL Urine Glucose (UA) Negative (Negative) mg/dL Urine Ketones Negative (Negative) mg/dL Urine Blood Negative (Negative) Urine Nitrite Negative (Negative) Ur Leukocyte Esterase Negative (Negative) COVID-19 (TAISHA) (Negative) COVID-19 Clin Com Independent Interpretation I performed an independent interpretation of an: EKG Discharge Plan Discharge Clinical Impression: Heart palpitations Patient Disposition: Home, Self-Care Instructions: Heart Palpitations (ED) Additional Instructions: Your workup in the emergency department today was reassuring. Your EKG and cardiac monitoring did not show any abnormalities with your heart Your blood work was reassuring. Your chest x-ray was clear Follow-up with cardiology at the number provided for your palpitations Prescriptions: No Action albuterol sulfate [ProAir HFA] 90 mcg/actuation HFA aerosol inhaler 2 puff inhalation Q4-6H PRN (Reason: shortness of breath or wheezing) Qty: 8.5 0RF naproxen 500 mg tablet 500 mg PO BID PRN (Reason: pain) Qty: 14 0RF Rx Instructions: Take with food amlodipine 5 mg tablet 5 mg PO DAILY ammonium lactate 12 % cream 1 appl topical DAILY atorvastatin 40 mg tablet 40 mg PO DAILY montelukast [Singulair] 10 mg tablet 10 mg PO BEDTIME albuterol sulfate 2.5 mg /3 mL (0.083 %) solution for nebulization 2.5 mg inhalation Q4-6H PRN (Reason: shortness of breath or wheezing) 30 Days Qty: 90 3RF Referrals: Yogi Chau MD [Physician] -
[2022-12-19 18:56] VITALS: BP 158/70; PULSE 85; RESP 18; TEMP 36.1; O2SAT 100; BMI 25.8
[2022-12-19 19:09] LABS: Hematocrit 45.2 % (37.0-47.0); PLT CLUMP 1; SCAN SMEAR FLAG 1
[2022-12-19 19:11] LABS: Basophils Percent Auto 0.3 % (0-2); Eosinophils Absolute Auto 0.1 X10*3/uL (0.0-0.4); Eosinophils Percent Auto 0.9 % (0-4); Hemoglobin 14.7 g/dl (12.0-16.0); Imm Gran Abs Auto 0.08 X10*3/uL (0.00-0.03); Imm Gran Pct Auto 0.6 % (0.0-0.4); Lymphocytes Absolute Auto 3.8 X10*3/uL (1.2-4.9); Lymphocytes Percent Auto 30.3 % (20-40); MANUAL DIFF FLAG SCAN; Mean Corpuscular HGB Conc 32.5 g/dl (31.0-35.0); Mean Corpuscular Hemoglobin 28.3 pg (27.0-33.0); Mean Corpuscular Volume 86.9 fL (80.0-98.0); Monocytes Absolute Auto 0.7 X10*3/uL (0.1-1.2); Monocytes Percent Auto 5.5 % (2-11); Neutrophils Absolute Auto 7.7 x10*3/uL (2.0-8.3); Neutrophils Percent Auto 62.4 % (45-73); Red Cell Distribution Width 13.6 % (11.0-16.0)
[2022-12-19 19:14] LABS: White Blood Count 12.4 X10*3/uL (4.8-10.8)
[2022-12-19 19:22] LABS: COVID-19 Test Negative (Negative); IDNOW Serial# BCCEAD1C
[2022-12-19 19:40] LABS: Troponin-I High Sensitivity < 2.7 ng/L (<3.5-17.0)
[2022-12-19 20:05] LABS: SLIDE REVIEW VERIFIED
[2022-12-19 20:57] LABS: Alanine Aminotransferase 20 U/L (0-31); Albumin Level 4.1 g/dL (3.5-5.0); Alkaline Phosphatase 167 U/L (39-117); Anion Gap 15 (12-20); Aspartate Amino Transferase 15 U/L (5-31); Bilirubin Total 0.2 mg/dL (0.0-1.0); Blood Urea Nitrogen 26 mg/dL (9-16); Calcium 9.7 mg/dL (8.4-10.2); Carbon Dioxide 25 mmol/L (22-29); Chloride 103 mmol/L (96-108); Creatinine Clr Calc Pharmacy 82.9; Estimated Glomerular Filt Rate > 60; Glucose Random 95 mg/dL (60-115); HCG Quantitative < 2 mIU/mL; Potassium 4.2 mmol/L (3.3-5.1); Sodium 139 mmol/L (135-145); Total Protein 7.5 g/dL (6.5-8.0)
[2022-12-19 21:35] VITALS: BP 141/59; PULSE 81; RESP 18; TEMP 36.7; O2SAT 98
--- NOTE | 2022-12-19 21:47 | PC.NURSE ---
this RN attempted to place an IV in pt, two attempts unsuccessful but labs obtained
[2022-12-19 21:54] VITALS: BP 144/61; PULSE 80
[2022-12-19 21:58] VITALS: BP 139/62; PULSE 84
[2022-12-19 22:01] VITALS: BP 140/73; PULSE 85
[2022-12-19 22:22] LABS: Appearance Urine Clear; Color Urine Yellow; Glucose Urine UA Negative (Negative); Leukocyte Esterase Urine Negative (Negative); Nitrite Urine Negative (Negative); PH 5.5 (5.0-9.0); Urine Blood Negative (Negative); Urine Ketones Negative (Negative); Urine Protein Negative (Neg-Trace)
[2022-12-19 23:06] LABS: D Dimer High Sensitivity 219 NG/ML
--- NOTE | 2022-12-19 23:23 | PC.NURSE ---
no apparent distress no sob able to speak in full sentences aox4 resting quietly while on phone
== END 2022-12-19 23:40 | disposition home or self-care (01) ==
PROVIDERS: Physician Assistant; Emergency Provider Emergency Medicine Emergency Medical Services; PCP Physician Assistant
DX: R00.2 Palpitations (principal); R42 Dizziness and giddiness; R07.89 Other chest pain; Z20.822 Contact with and (suspected) exposure to COVID-19; Z20.828 Contact with and (suspected) exposure to other viral communicable diseases; Z79.899 Other long term (current) drug therapy
CPT/HCPCS: 36415; 71046; 80053; 81003; 83735; 84484; 84702; 85025; 85379; 87635; 93005; 99283; 99284

== ENCOUNTER 2022-12-30 08:40 | Outpatient (REF) | payer MEDICARE, MEDICAID, SELFPAY ==
--- NOTE | 2022-12-30 09:47 | PFT_ITS ---
Forced vital capacity 71%. FEV1 59%. FEV1/FVC ratio is 66. CII43-34 34% and MVV 90%. Post bronchodilator therapy, there is a slight improvement in FPV84-70. Total lung capacity 85%. Residual volume 88%. Diffusion capacity 88%. CONCLUSION: Mild to moderate degree of obstructive airway disorder. Only minimal improvement with bronchodilator therapy. Clinical correlation is recommended. MD SUMAYA Bethea/MODL / [id number]
== END 2022-12-30 08:41 | disposition home or self-care (01) ==
LOC: HO.RESP 08:40
PROVIDERS: PCP Registered Nurse; Visit Provider Internal Medicine
DX: J45.909 Unspecified asthma, uncomplicated (principal); R06.00 Dyspnea, unspecified; E66.9 Obesity, unspecified
CPT/HCPCS: 94010; 94727; 94729

== ENCOUNTER 2023-01-02 10:24 | Outpatient (REF) | payer MEDICARE, MEDICAID, SELFPAY ==
--- NOTE | ~2023-01-02 | MM_ITS ---
EXAMINATION: MM SCREENING DIGITAL BREAST TOMOSYNTHESIS, BILATERAL CLINICAL INFORMATION: Screening. Asymptomatic. Age 62. No prior breast imaging. No known family history breast cancer. The lifetime risk of breast cancer based on the Tyrer-Cuzick Model is 7%. COMPARISON: None (current study represents initial baseline exam). TECHNIQUE: Digital breast tomosynthesis is performed in both the craniocaudal and mediolateral oblique views along with computer-aided detection (CAD). Synthesized 2D images are generated from the tomosynthesis. FINDINGS: There are scattered areas of fibroglandular density (ACR BI-RADS breast composition Category b). Breast tissue composition borders on heterogeneously dense. There are no significant masses, abnormal calcifications, or other abnormalities. No architectural abnormality. The axilla and skin contours are unremarkable. MM/MM tomosynthesis screening BI IMPRESSION: No mammographic evidence of malignancy. ASSESSMENT: BI-RADS 1: Negative RECOMMENDATION: Routine annual mammography screening. This patient's information was entered into a reminder system with a target due date for their next mammogram.
== END 2023-01-02 10:25 | disposition home or self-care (01) ==
LOC: HO.MAMMO 10:24
PROVIDERS: PCP Registered Nurse; Visit Provider Registered Nurse
DX: Z12.31 Encounter for screening mammogram for malignant neoplasm of breast (principal)
CPT/HCPCS: 77063; 77067

== ENCOUNTER → 2023-01-07 08:48 | Outpatient (REF) | payer MEDICARE, MEDICAID, SELFPAY | LOC: HO.SL 08:48 | PROVIDERS: PCP Registered Nurse; Visit Provider Internal Medicine | DX: G47.33 Obstructive sleep apnea (adult) (pediatric) (principal); E66.9 Obesity, unspecified | CPT/HCPCS: 95806 ==

== ENCOUNTER → 2023-01-27 09:24 | Outpatient (BNVA) | payer MEDICARE, MEDICAID, SELFPAY | PROVIDERS: PCP Registered Nurse; Visit Provider Internal Medicine | DX: J45.909 Unspecified asthma, uncomplicated (principal); E66.9 Obesity, unspecified; R06.83 Snoring | CPT/HCPCS: 99212 ==

== ENCOUNTER 2023-03-07 12:54 | Outpatient (REF) | payer OTHER, MEDICAID, SELFPAY ==
--- NOTE | ~2023-03-07 | US_ITS ---
EXAMINATION: US PELVIS CLINICAL INFORMATION: Left lower quadrant pain. History of . History of hysterectomy and right oophorectomy. COMPARISON: CT abdomen and pelvis 05/23/2022. TECHNIQUE: Ultrasound of the pelvis is performed using both transabdominal and transvaginal transducers along with Doppler. Transvaginal imaging is performed due to inadequate visualization transabdominally. FINDINGS: Uterus: Not visualized consistent with history of hysterectomy. Adnexa: The right ovary is not visualized consistent with history of right oophorectomy. The left ovary is not seen. No free fluid or fluid collections seen in the pelvis. US/US pelvic and transvaginal IMPRESSION: Hysterectomy and right oophorectomy. The left ovary is not seen.
== END 2023-03-07 12:55 | disposition home or self-care (01) ==
LOC: HO.US 12:54
PROVIDERS: PCP Registered Nurse; Visit Provider Advanced Practice Midwife
DX: R10.32 Left lower quadrant pain (principal)
CPT/HCPCS: 76830; 76856

== ENCOUNTER 2023-03-27 11:26 | Outpatient (REF) | payer OTHER, SELFPAY ==
[2023-03-27 14:15] LABS: Alanine Aminotransferase 22 U/L (0-31); Albumin Level 3.9 g/dL (3.5-5.0); Alkaline Phosphatase 136 U/L (39-117); Aspartate Amino Transferase 15 U/L (5-31); Bilirubin Direct 0.1 mg/dL (0.0-0.5); Bilirubin Total 0.3 mg/dL (0.0-1.0); Gamma Glutamyl Transpeptidase 29 U/L (7-33); Total Protein 7.1 g/dL (6.5-8.0)
[2023-03-27 14:19] LABS: Vitamin D 25-OH Total 39.5 ng/mL (>30)
== END 2023-03-27 11:27 | disposition home or self-care (01) ==
LOC: HO.HHCL 11:26
PROVIDERS: Visit Provider Registered Nurse
DX: E55.9 Vitamin D deficiency, unspecified (principal); R74.8 Abnormal levels of other serum enzymes
CPT/HCPCS: 36415; 80076; 82306; 82977

== ENCOUNTER 2023-03-31 11:38 | Outpatient (REF) | payer OTHER, SELFPAY ==
[2023-03-31 14:17] LABS: Phosphorus 2.4 mg/dL (2.7-4.5)
[2023-04-01 14:13] LABS: Calcium (PTHI) 9.7 mg/dL (8.6-10.4); PTHI 113 pg/mL (16-77)
[2023-04-07 18:03] LABS: Alk.Phos Iso. Macrohepatic 0 % (<=0); Alk.Phos Isoenzymes Bone 30 % (28-66); Alk.Phos Isoenzymes Intest 0 % (1-24); Alk.Phos Isoenzymes Liver 70 % (25-69); Alk.Phos Isoenzymes Placental 0 % (<=0); Alk.Phos Isoenzymes Total 134 U/L (37-153)
== END 2023-03-31 11:39 | disposition home or self-care (01) ==
LOC: HO.HHCL 11:38
PROVIDERS: Visit Provider Registered Nurse
DX: R74.8 Abnormal levels of other serum enzymes (principal)
CPT/HCPCS: 36415; 83970; 84080; 84100; 84443

== ENCOUNTER → 2023-07-31 20:30 | Outpatient (REF) | payer OTHER, SELFPAY | LOC: HO.SL 20:30 | PROVIDERS: PCP Registered Nurse; Visit Provider Registered Nurse | DX: Z13.89 Encounter for screening for other disorder (principal) ==

== ENCOUNTER 2023-09-04 14:11 | Outpatient (AMB) | payer OTHER, SELFPAY ==
[2023-09-04 14:16] VITALS: BMI 34.7
--- NOTE | 2023-09-04 14:16 | A.OFFVIS_ITS ---
Intake VS Expanded 09/04/23 14:16 09/15/23 20:16 Height 5 ft 6 in 5 ft 6 in Weight 214 lb 15.211 oz 215 lb BMI 34.7 34.7 Intake Visit Reasons: Obesity Allergies hydrocortisone [From Solu-Cortef] Allergy (Verified 01/27/23 09:38) Anaphylaxis tramadol Adverse Reaction (Verified 01/27/23 09:38) Palpitations HPI Nutrition Presentation Details Pt presents for MNT for Obesity. The Pt was referred by JOHAN Winchester from [facility] Pt reports having 6 smeal per day Pt has T2DM and reports taking metformin 500 mg/day B: eggs/tortilla/macha tea , water snack: fruit L:salad/protein, water D: starch/protein pistachio/dates food frequency: Fruits: >2 ve-5 cups/wk fish: yogurt: 1/d water: > 60 oz/d physical: gym 3 x/wk 30 minutes etoh: occ magnesium, folic acid VKC-Ucpaztl-Ok.Jeor Equation Height 5 ft 6 in Weight 215 lb Resting Metabolic Rate 1560.88 Calculated Activity Level Mild Activity Calories Needed to Maintain Weight 2146.21 Diagnosis Nutrition problem #1 excessive energy intake As related to (etiology) #1 diagnosis As evidenced by (sign/symptom) #1 high BMI (34.7 on 08/2023) Monitoring/Goals Nutrition problem monitoring level of knowledge/skill, total PRO intake, total CHO intake, weight and oral fluids Nutrition goal/outcome wt loss 5lbs in 2 months Learning/Education Readiness to learn good Stages of change preparation Educational materials provided Yes (meal planning) Most Recent Diabetes Results: AST 15 U/L (5-31) 03/27/23 ALT 22 U/L (0-31) 03/27/23 Total Protein 7.1 g/dL (6.5-8.0) 03/27/23 Albumin 3.9 g/dL (3.5-5.0) 03/27/23 [facility] Medical History (Updated 09/04/23 @ 14:[address], LDN) Snoring Asthma [place] (obstructive sleep apnea) Obesity (BMI 30-39.9) Asthma [place] (obstructive sleep apnea) Vertigo Diabetes Fibromyalgia Social History Alcohol intake: never Patient Tobacco Use Status: Never used Tobacco Current occupational status: retired and disabled Current occupation: rt hand Assessment & Plan Assessment & Plan (1) Diabetes: Code(s): E11.9 - Type 2 diabetes mellitus without complications Plan: Wt: 98 Kg ( 08/2023 ) Est kcal needs as per MSJ: 2146 (40% carb, 30% protein/fat) Est fluid needs as per 30 ml/d: 2940 Est prot per day as per 1 g/kg bw:98 Recommend fiber intake : 8-10 g per day and gradually increase to 25-28 g per day for women and 35-38 g for men or as tolerated Recommend sodium intake per day : less than 2000 mg Educated patient on: ( R = reviewed V = verbalizes understanding N/R = needs review N/A = not applicable * Food sources of carbohydrate, adequate serving sizes and its role in various health conditions: R * Differences between complex carbohydrates a simple carbohydrates, role of fiber in diet: R * Lean protein sources of foods: R * Differences between types of fats and role in diet (mono on saturated fat fatty acids, saturated fatty acids, trans fats): R low fat basic * Food sources of sodium in salt and healthy modifications for heart health in kidney health: NR * Vitamins and minerals: N/R * Healthy plate method concept: R * Physical activity: Benefits a precaution: N/R (2) Obesity (BMI 30-39.9): Code(s): E66.9 - Obesity, unspecified Plan: Wt: 98 Kg ( 08/2023 ) Est kcal needs as per MSJ: 2146 (40% carb, 30% protein/fat) Est fluid needs as per 30 ml/d: 2940 Est prot per day as per 1 g/kg bw:98 Recommend fiber intake : 8-10 g per day and gradually increase to 25-28 g per day for women and 35-38 g for men or as tolerated Recommend sodium intake per day : less than 2000 mg Educated patient on: ( R = reviewed V = verbalizes understanding N/R = needs review N/A = not applicable * Food sources of carbohydrate, adequate serving sizes and its role in various health conditions: R * Differences between complex carbohydrates a simple carbohydrates, role of fiber in diet: R * Lean protein sources of foods: R * Differences between types of fats and role in diet (mono on saturated fat fatty acids, saturated fatty acids, trans fats): R low fat basic * Food sources of sodium in salt and healthy modifications for heart health in kidney health: NR * Vitamins and minerals: N/R * Healthy plate method concept: R * Physical activity: Benefits a precaution: N/R * Patient Instructions: Work on following healthy plate method, reducing total carb at meal to less than 60 g for now HAve water with meals, reducing on sugar from beverages Coding Level of Care Code Nutr Indiv Intake (75117) Diagnoses Diabetes E11.9 Obesity (BMI 30-39.9) E66.9 Time Spent (min) 30
[2023-09-15 20:16] VITALS: BMI 34.7
== END 2023-09-04 15:07 | disposition home or self-care (01) ==
PROVIDERS: PCP Registered Nurse; Visit Provider Dietitian, Registered
DX: E11.9 Type 2 diabetes mellitus without complications (principal); E66.9 Obesity, unspecified

== ENCOUNTER → 2023-09-04 14:11 | Outpatient (BNVA) | payer OTHER, SELFPAY | PROVIDERS: PCP Registered Nurse; Visit Provider Dietitian, Registered | DX: E11.9 Type 2 diabetes mellitus without complications (principal); E66.9 Obesity, unspecified; Z68.34 Body mass index [BMI] 34.0-34.9, adult | CPT/HCPCS: 97802 ==

== ENCOUNTER 2024-03-01 08:36 | Outpatient (REF) | payer OTHER, SELFPAY ==
--- NOTE | ~2024-03-01 | MM_ITS ---
EXAMINATION: MM SCREENING DIGITAL BREAST TOMOSYNTHESIS, BILATERAL CLINICAL INFORMATION: Screening. Asymptomatic. The patient is status post left breast excisional benign biopsy. COMPARISON: Mammography: This study is compared with prior exams dating back to 2022. TECHNIQUE: Digital breast tomosynthesis is performed in both the craniocaudal and mediolateral oblique views along with computer-aided detection (CAD). Synthesized 2D images are generated from the tomosynthesis. FINDINGS: The breasts are heterogeneously dense, which may obscure small masses (ACR BI-RADS breast composition Category c). There are no significant masses, abnormal calcifications, or other abnormalities. MM/MM tomosynthesis screening BI IMPRESSION: No mammographic evidence of malignancy. ASSESSMENT: BI-RADS BI-RADS 1 - Negative RECOMMENDATION: Routine annual mammography screening. 1 year F/U This examination should not preclude the clinical evaluation of a suspicious palpable abnormality. This patient's information was entered into a reminder system with a target due date for their next mammogram.
== END 2024-03-01 08:37 | disposition home or self-care (01) ==
LOC: HO.MAMMO 08:36
PROVIDERS: PCP Registered Nurse; Visit Provider Registered Nurse
DX: Z12.31 Encounter for screening mammogram for malignant neoplasm of breast (principal)
CPT/HCPCS: 77063; 77067

== ENCOUNTER → 2024-03-01 09:00 | Outpatient (BNV) | payer OTHER, SELFPAY | PROVIDERS: PCP Registered Nurse; Visit Provider Radiology Diagnostic Radiology | DX: Z12.31 Encounter for screening mammogram for malignant neoplasm of breast (principal) | CPT/HCPCS: 77063; 77067 ==

== ENCOUNTER 2024-03-23 12:11 | Emergency (ER) | payer OTHER, SELFPAY ==
--- NOTE | ~2024-03-23 | CT_ITS ---
EXAMINATION: Unenhanced CT of the brain and cervical spine INDICATION: Headache and neck pain after head injury COMPARISON: None TECHNIQUE: Continuous helical imaging obtained through the head and cervical spine without IV contrast. Reconstructed images performed in the coronal and sagittal planes. This CT examination was performed using dose optimization techniques as appropriate, variously including the following: *Automated exposure control *Adjustment of mA and/or kV according to patient size (this includes techniques or standardized protocols for targeted exams where dose is matched to indication/reason for exam; i.e. extremities or head) *Use of iterative reconstruction technique TOTAL EXAM DLP: 701 and 447 mGy-cm, head and cervical spine respectively. FINDINGS: Head: Intracranial structures are normal in appearance. Davis-white matter differentiation is served. Basal ganglia calcifications. Intraorbital structures are unremarkable. Mild right ethmoid sinus disease. Remaining sinuses and mastoids are clear. Bony structures are intact. Soft tissues are unremarkable. Cervical spine: Mild rightward orientation of the cervical spine. Multilevel spurring and disc space narrowings. No fracture or traumatic subluxation. Odontoid is intact, posterior elements are aligned and no prevertebral soft tissue swelling is seen. Severe left C4-C5 and C5-C6 neuroforaminal narrowings. Bony spur causes impression on the anterior thecal sac at C4-C5. Prominent cervical and submandibular lymph nodes. Largest submandibular lymph node on the left measures 1.7 cm. Visualized parotid glands and thyroid are unremarkable. Lung apices are clear. CT/CT cervical spine wo IV con IMPRESSION: No acute intracranial or cervical spine pathology. Cervical spondylosis. Prominent cervical and submandibular lymph nodes, correlate clinically.
--- NOTE | ~2024-03-23 | CT_ITS ---
EXAMINATION: Unenhanced CT of the brain and cervical spine INDICATION: Headache and neck pain after head injury COMPARISON: None TECHNIQUE: Continuous helical imaging obtained through the head and cervical spine without IV contrast. Reconstructed images performed in the coronal and sagittal planes. This CT examination was performed using dose optimization techniques as appropriate, variously including the following: *Automated exposure control *Adjustment of mA and/or kV according to patient size (this includes techniques or standardized protocols for targeted exams where dose is matched to indication/reason for exam; i.e. extremities or head) *Use of iterative reconstruction technique TOTAL EXAM DLP: 701 and 447 mGy-cm, head and cervical spine respectively. FINDINGS: Head: Intracranial structures are normal in appearance. Davis-white matter differentiation is served. Basal ganglia calcifications. Intraorbital structures are unremarkable. Mild right ethmoid sinus disease. Remaining sinuses and mastoids are clear. Bony structures are intact. Soft tissues are unremarkable. Cervical spine: Mild rightward orientation of the cervical spine. Multilevel spurring and disc space narrowings. No fracture or traumatic subluxation. Odontoid is intact, posterior elements are aligned and no prevertebral soft tissue swelling is seen. Severe left C4-C5 and C5-C6 neuroforaminal narrowings. Bony spur causes impression on the anterior thecal sac at C4-C5. Prominent cervical and submandibular lymph nodes. Largest submandibular lymph node on the left measures 1.7 cm. Visualized parotid glands and thyroid are unremarkable. Lung apices are clear. CT/CT head/brain wo IV con IMPRESSION: No acute intracranial or cervical spine pathology. Cervical spondylosis. Prominent cervical and submandibular lymph nodes, correlate clinically.
[2024-03-23 12:14] VITALS: BP 131/67; PULSE 94; RESP 18; TEMP 36.6; O2SAT 98; BMI 34.5
--- NOTE | 2024-03-23 12:20 | ED.HEATRA ---
HPI - Head Injury General Chief complaint: Head Injury Stated complaint: hit head going in car, neck pain Time Seen by Provider: 03/23/24 16:00 Source: patient and RN notes reviewed Mode of arrival: ambulatory Limitations: no limitations History of Present Illness ED Provider: Ayaka Pleitez PA-C HPI Narrative: This is a 63-year-old female, with a history of asthma, fibromyalgia, and diabetes, presents emergency department with complaints of head injury. Patient states that 4 days ago she was getting into her car when she accidentally struck the front side of her head on the inside of the car. Denies loss of consciousness. She states that since his injury she has been experiencing headache, neck pain, and back pain. She has been taking gabapentin as well as Tylenol which has provided her with minimal relief. She denies any changes in vision, fevers, chills, chest pain, shortness of breath, cough, congestion, abdominal pain, nausea, vomiting or diarrhea. No urinary symptoms. No saddle anesthesia. No urinary or bowel retention or incontinence. No other complaints or concerns at this time. MD Complaint: head injury and head pain Onset (ago): day(s) Place: home Loss of Consciousness: no Location of injury: frontal Severity: moderate Quality: aching Radiation: neck Other Injuries: none Associated symptoms: denies other symptoms Related Data Home Medications ?Medication ?Instructions ?Recorded ?Confirmed amlodipine 5 mg tablet 5 mg PO DAILY 12/18/22 01/27/23 ammonium lactate 12 % topical cream 1 appl topical DAILY 12/18/22 01/27/23 atorvastatin 40 mg tablet 40 mg PO DAILY 12/18/22 01/27/23 montelukast 10 mg tablet 10 mg PO BEDTIME 12/18/22 01/27/23 (Singulair) Previous Rx's ?Medication ?Instructions ?Recorded albuterol sulfate 90 mcg/actuation 2 puff inhalation Q4-6H PRN 07/12/22 aerosol inhaler (ProAir HFA) shortness of breath or wheezing #8.5 grams naproxen 500 mg tablet 500 mg PO BID PRN pain #14 tabs 08/23/22 albuterol sulfate 2.5 mg/3 mL 2.5 mg (3 mL) inhalation Q4-6H PRN 12/18/22 (0.083 %) solution for nebulization shortness of breath or wheezing 30 days #90 mL acetaminophen 500 mg tablet 500 mg PO Q6H PRN pain #30 tabs 03/23/24 (Tylenol Extra Strength) lidocaine 5 % topical patch 1 patch topical DAILY #30 ea 03/23/24 (Lidoderm) Allergies Allergy/AdvReac Type Severity Reaction Status Date / Time hydrocortisone Allergy Anaphylaxis Verified 03/23/24 12:16 [From Solu-Cortef] tramadol AdvReac Palpitation Verified 03/23/24 12:16 s Review of Systems Review of Systems: Yes all other systems are reviewed and are negative Constitutional: Constitutional: Reports as per [facility] Past Medical History Attestation statement: The following information was validated with the patient. Medical History Snoring Asthma [place] (obstructive sleep apnea) Obesity (BMI 30-39.9) Asthma [place] (obstructive sleep apnea) Vertigo Diabetes Fibromyalgia Social History Social History Alcohol intake: never Patient Tobacco Use Status: Never used Tobacco Advance Directives: No Advance Directives Information Provided: Yes Current occupational status: retired and disabled Current occupation: rt hand Physical Exam Vital Signs: Vital Signs: Last Vital Signs Temp 98 F 03/23/24 17:18 Pulse 94 03/23/24 17:18 Resp 18 03/23/24 17:18 BP 131/67 03/23/24 17:18 Pulse Ox 98 03/23/24 17:18 O2 Del Method Room Air 03/23/24 17:18 BMI result Body Mass Index 34.5 Const: General: cooperative, comfortable and no acute distress Orientation/consciousness: patient oriented x3 Limitations: no limitations HEENT: Other: Mild tenderness palpation on the frontal aspect of her head, no hematoma or abrasions. Head: Yes normal to inspection, Yes normocephalic and Yes atraumatic Ears: hearing grossly normal bilaterally and TM's normal bilaterally General nose exam: Normal external nose present Face and sinus: Yes normal facial exam Mouth: Normal oral and palatal mucosa present, oropharynx normal and moist mucous membranes Throat: Yes posterior oropharynx normal Eyes: General: appearance normal, both eyes and all related structures Eyelids: Yes eyelids normal Conjunctivae: conjunctivae normal Sclerae: sclerae normal Pupils: Equal, round and reactive pupils present EOM: EOMs intact bilaterally Neck: Other: No midline spine tenderness on examination. Tenderness palpation along the cervical paraspinous muscles, full range of motion of the neck Neck: Yes normal visual inspection, Yes full ROM and Yes no lymphadenopathy Lymphatic: no lymphadenopathy noted Chest: Chest palpation & inspection: normal inspection of the chest Resp: Effort & Inspection: normal respiratory effort and able to speak in complete sentences Auscultation: clear to auscultation bilaterally, no crackles, no rales, no rhonchi and no wheezes Cardio: Rate: regular rate Rhythm: regular rhythm Heart sounds: S1 normal heart sound present and S2 normal heart sound present GI: Inspection: Yes normal to inspection Back/Spine/Pelvis: Other: No midline spine tenderness. She has tenderness palpation along the paraspinous muscles of the lumbar spine. Skin: General skin exam: no rashes or lesions noted Trauma: no lacerations or abrasions Wounds: no wounds Neuro: General: patient oriented x3 and moves all extremities Cranial nerves: Yes Equal, round and reactive pupils present Extrem: General: Yes normal to inspection Right upper extremity: normal to inspection Left upper extremity: normal to inspection Right lower extremity: normal to inspection Left lower extremity: normal to inspection Course Course Course Narrative: This is a Rapid Medical Examination (RME) performed by Malini Pena PA-C in triage. Full HPI, ROS, assessment and treatment plan per primary provider in the Main ED. 63 yo female with history of fibromyalgia, asthma, [place], diabetes, obesity who presents to the ER for evaluation of headache and neck pain after she hit the front of her head while getting in her car on 03/19. No LOC and she is not on anticoagulation. She reports she has had a persistent headache and posterior neck pain since then. Not improving with Tylenol. Plan: CT scan of the head and neck Medical Decision Making Medical Decision Making MDM Narrative: this is a 63-year-old female, with a history of fibromyalgia, who presents emergency department with complaints of headache, neck pain, and back pain status post head strike. On arrival, vital signs within normal limits. She is neurologically intact. She appears to be under no acute distress. Head CT and C-spine CT was obtained which revealed no acute injury. There is cervical spondylosis, there is also prominent cervical and submandibular lymph nodes. Patient reports that she recently had a cold several weeks ago. She has no sore throat. Discussed findings with patient, she will follow-up with her PCP. Discharge with ibuprofen, Tylenol. Given return precautions. She understands and agrees with plan. Patient stable for discharge Differential Diagnosis Differential Diagnoses: The differential diagnosis associated with the presentation includes ICH-unlikely, SDH-unlikely, cervical strain, spasm Radiology Impression Discussion of test interpretation with radiology: I have reviewed the radiologist's reading. Radiologist Impression: FINDINGS: Head: Intracranial structures are normal in appearance. Davis-white matter differentiation is served. Basal ganglia calcifications. Intraorbital structures are unremarkable. Mild right ethmoid sinus disease. Remaining sinuses and mastoids are clear. Bony structures are intact. Soft tissues are unremarkable. Cervical spine: Mild rightward orientation of the cervical spine. Multilevel spurring and disc space narrowings. No fracture or traumatic subluxation. Odontoid is intact, posterior elements are aligned and no prevertebral soft tissue swelling is seen. Severe left C4-C5 and C5-C6 neuroforaminal narrowings. Bony spur causes impression on the anterior thecal sac at C4-C5. Prominent cervical and submandibular lymph nodes. Largest submandibular lymph node on the left measures 1.7 cm. Visualized parotid glands and thyroid are unremarkable. Lung apices are clear. CT/CT cervical spine wo IV con IMPRESSION: No acute intracranial or cervical spine pathology. Cervical spondylosis. Prominent cervical and submandibular lymph nodes, correlate clinically. Dictated By: Sherita Stewart MD Signed By: <Electronically signed by Sherita Stewart MD in OV> Discharge Plan Discharge Clinical Impression: Closed head injury Patient Disposition: Home, Self-Care Instructions: Head Injury (ED) Additional Instructions: You were seen in the emergency department after hitting your head over the weekend. Your CT scan does not show any new injury. Please rest, drink plenty of fluids, gentle stretching and massage the area. Take Tylenol as needed for pain. You may apply Lidoderm patches as needed for pain. You also have findings of swollen lymph nodes on your CT scan, please follow-up with your primary care physician regarding this. If any new or worsening symptoms occur including but not limited to worsening pain, severe headache, severe dizziness, chest pain, shortness of breath, please return for re-evaluation. Prescriptions: New acetaminophen [Tylenol Extra Strength] 500 mg tablet 500 mg PO Q6H PRN (Reason: pain) Qty: 30 0RF lidocaine [Lidoderm] 5 % adhesive patch,medicated 1 patch topical DAILY Qty: 30 0RF Rx Instructions: leave on most painful area for up to 12 hrs No Action albuterol sulfate [ProAir HFA] 90 mcg/actuation HFA aerosol inhaler 2 puff inhalation Q4-6H PRN (Reason: shortness of breath or wheezing) Qty: 8.5 0RF naproxen 500 mg tablet 500 mg PO BID PRN (Reason: pain) Qty: 14 0RF Rx Instructions: Take with food amlodipine 5 mg tablet 5 mg PO DAILY ammonium lactate 12 % cream 1 appl topical DAILY atorvastatin 40 mg tablet 40 mg PO DAILY montelukast [Singulair] 10 mg tablet 10 mg PO BEDTIME albuterol sulfate 2.5 mg /3 mL (0.083 %) solution for nebulization 2.5 mg inhalation Q4-6H PRN (Reason: shortness of breath or wheezing) 30 Days Qty: 90 3RF Interventions: ED Discharge Assessment Last Done: 03/23/24 17:18 Discharge Date/Time: 03/23/24 17:19 Print Language: Montenegrin
[2024-03-23 17:18] VITALS: BP 131/67; PULSE 94; RESP 18; TEMP 36.6; O2SAT 98
== END 2024-03-23 17:19 | disposition home or self-care (01) ==
PROVIDERS: Emergency Provider Emergency Medicine; PCP Physician Assistant
DX: S09.8XXA Other specified injuries of head, initial encounter (principal); W22.8XXA Striking against or struck by other objects, initial encounter; Y93.89 Activity, other specified; Y92.810 Car as the place of occurrence of the external cause; Y99.9 Unspecified external cause status
CPT/HCPCS: 70450; 72125; 99282; 99284